=== PATIENT | male | born 1960 | race Caucasian/White ===

== ENCOUNTER 2018-08-01 10:25 | Observation (INO) | payer OTHER ==
--- NOTE | 2018-08-01 11:15 | PDOC ---
Attending Attestation - Resident Resident Name: Darius Oliveira - HPI HPI: The patient is a 58 year old male (current smoker and marijuana user), with a significant PMH of hemolytic anemia, hypertension, kidney stones, and depression , who presents to the emergency department today for irregularly low blood levels. Patient was advised by his PCP to come to the ED for observation of his anemia, and for possible transfusion. Patient has history of hemolytic anemia, but denies any transfusions. He reports associated dizziness, migraines , and bilateral lower extremity leg cramping on exertion. Patient also endorses history of rectal bleeding, but has not had an episode in over a year. The patient denies chest pain, shortness of breath, and orthopnea. Denies lightheadedness, and sensory changes. Denies fever, chills, nausea, vomit, diarrhea and constipation. Denies dysuria, frequency, urgency and hematuria. Allergies: NKA Past surgical history: None reported Social history: Current everyday smoker (20 cigarettes per day) and marijuana user PCP: Dr. Lopez (Not on staff) 08/01/18 13:26 - Physicial Exam PE: GENERAL: Awake, alert, and fully oriented, in no acute distress HEAD: No signs of trauma EYES: PERRLA, EOMI, sclera anicteric, conjunctiva clear ENT: Auricles normal inspection, hearing grossly normal, nares patent, oropharynx clear without exudates. Moist mucosa NECK: Normal ROM, supple, no lymphadenopathy, JVD, or masses LUNGS: Breath sounds equal, clear to auscultation bilaterally. No wheezes, and no crackles HEART: +Mild tachycardia. Regular rate and rhythm, normal S1 and S2, no murmurs , rubs or gallops ABDOMEN: Soft, nontender, normoactive bowel sounds. No guarding, no rebound. No masses EXTREMITIES: Normal range of motion, no edema. No clubbing or cyanosis. No cords, erythema, or tenderness NEUROLOGICAL: Cranial nerves II through XII grossly intact. Normal speech, normal gait SKIN: Warm, Dry, normal turgor, no rashes or lesions noted. 08/01/18 13:27 - Medical Decision Making Documentation prepared by BONY Peña, acting as medical anthropologist for Pilar Desouza MD. 08/01/18 13:27 <Adriane Morgan - Last Filed: 08/01/18 13:37> - Medical Decision Making 08/01/18 18:56 Pt presents to the ED after sent to the ED for severe anemia. Denies complaints except for lightheadness. Labs show severe anemia. Will transfuse 2 units PRBC and admit to medicine. <Pilar Desouza - Last Filed: 08/01/18 18:58>
--- NOTE | 2018-08-01 11:40 | PDOC ---
History of Present Illness - General Chief Complaint: Blood Transfusion Stated Complaint: SENT BY PCP Time Seen by Provider: 08/01/18 11:14 - History of Present Illness Initial Comments: 08/01/18 11:22 58 yo M with h/o HTN, and depression who p/w anemia. Patient advised by PMD to come to ED for low "blood level." Patient was told in past that he had h/o anemia. Denies h/o transfusions. Patient reports 1 year of intermittent rectal spotting with bright red blood per rectum. Does not f/w GI. Denies h/o colonoscopy. Patient denies DIXON, vision change, palpitations, cough, wheezing, orthopena, PND , leg swelling/pain, N/V, F,C, CP, SOB, urinary complaints, hematuria, abdominal pain, diarrhea, constipation, lightheadedness, weakness, sensory changes. PMHx: as noted above ROS: as noted Allergies: NKDA Past History - Past Medical History Allergies/Adverse Reactions: Allergies Allergy/AdvReac Type Severity Reaction Status Date / Time No Known Allergies Allergy Verified 08/01/18 10:29 Home Medications: Ambulatory Orders Amlodipine Besylate 5 mg PO DAILY 03/25/15 Amlodipine Besylate [Norvasc -] 5 mg PO DAILY #7 tablet 03/25/15 Oxycodone HCl/Acetaminophen [Percocet 5/325 -] 1 tab PO Q4H #20 tablet 03/25/15 Tamsulosin HCl [Flomax] 0.4 mg PO DAILY #14 capsule 03/25/15 COPD: No HTN: Yes Kidney Stones: Yes - Surgical History Abdominal Surgery: No Appendectomy: No Cardiac Surgery: No - Immunization History Immunization Up to Date: Yes - Suicide/Smoking/Psychosocial Hx Smoking Status: Yes Smoking History: Current every day smoker Have you smoked in the past 12 months: Yes Number of Cigarettes Smoked Daily: 20 Information on smoking cessation initiated: No 'Breaking Loose' booklet given: 09/13/12 Hx Alcohol Use: No Drug/Substance Use Hx: No Substance Use Type: Marijuana Hx Substance Use Treatment: No Review of Systems - Review of Systems Comments:: 08/01/18 11:49 GENERAL/CONSTITUTIONAL: No fever or chills. No weakness. HEAD, EYES, EARS, NOSE AND THROAT: No change in vision. No ear pain or discharge. No sore throat. CARDIOVASCULAR: No chest pain or shortness of breath RESPIRATORY: No cough, wheezing, or hemoptysis. GASTROINTESTINAL: No nausea, vomiting, diarrhea or constipation. GENITOURINARY: No dysuria, frequency, or change in urination. MUSCULOSKELETAL: No joint or muscle swelling or pain. No neck or back pain. SKIN: No rash NEUROLOGIC: No headache, vertigo, loss of consciousness, or change in strength/ sensation. ENDOCRINE: No increased thirst. No abnormal weight change HEMATOLOGIC/LYMPHATIC: No anemia, easy bleeding, or history of blood clots. ALLERGIC/IMMUNOLOGIC: No hives or skin allergy. *Physical Exam - Vital Signs Last Vital Signs Temp Pulse Resp BP Pulse Ox 99.6 F 109 H 20 141/74 100 08/01/18 10:30 08/01/18 10:30 08/01/18 10:30 08/01/18 10:30 08/01/18 10:30 - Physical Exam Comments: 08/01/18 11:49 GENERAL: Awake, alert, and fully oriented, in no acute distress HEAD: No signs of trauma, normocephalic, atraumatic EYES: PERRLA, EOMI, sclera anicteric, conjunctiva clear ENT: Auricles normal inspection, hearing grossly normal, nares patent, oropharynx clear without exudates. Moist mucosa NECK: Normal ROM, supple, no lymphadenopathy, JVD, or masses LUNGS: No distress, speaks full sentences, clear to auscultation bilaterally HEART: Regular rate and rhythm, normal S1 and S2, no murmurs, rubs or gallops, peripheral pulses normal and equal bilaterally. ABDOMEN: Soft, nontender, normoactive bowel sounds. No guarding, no rebound. No masses EXTREMITIES : Normal inspection, Normal range of motion, no edema. No clubbing or cyanosis. NEUROLOGICAL: Cranial nerves II through XII grossly intact. Normal speech, normal gait, no focal sensorimotor deficits SKIN: Warm, Dry, normal turgor, no rashes or lesions noted Moderate Sedation - Procedure Monitoring Vital Signs: Procedure Monitoring Vital Signs Temperature 99.6 F 08/01/18 10:30 Pulse Rate 109 H 08/01/18 10:30 Respiratory Rate 20 08/01/18 10:30 Blood Pressure 141/74 08/01/18 10:30 O2 Sat by Pulse Oximetry (%) 100 08/01/18 10:30 ED Treatment Course - LABORATORY CBC & Chemistry Diagram: 08/01/18 11:50 08/01/18 11:50 Medical Decision Making - Medical Decision Making 08/01/18 11:46 58 yo M with h/o HTN, chronic anemia ( Hemoglobin ~7-8), and depression who p/w worsening anemia. HR 109, Vitals othewise wnl, AF, A&Ox3. Phyusical exam unremarkable. Will evluate for acute blood loss anemia, and need to resuscitation or transfuse. Patient denies denies DIXON, vision change, palpitations, cough, leg swelling/pain, N/V, F,C, CP, SOB, urinary complaints, hematuria, abdominal pain, diarrhea, constipation, lightheadedness, weakness, sensory changes. Will assess for cardiac dysarrythmias, hypoglycemia, electrolyte abnml, metabolic and toxic derangements, acid-base disturbances, infection. 08/01/18 11:50 ED Course: Patient refuses rectal exam 08/01/18 11:57 H/H: 5.8/21.2 Patient consents to blood transfusions. 2U PRBC 08/01/18 13:45 Admit for transfusion dependent anemia. 08/01/18 14:[address] Dove. Admitted to medicine. *DC/Admit/Observation/Transfer Diagnosis at time of Disposition: Anemia requiring transfusions - Discharge Dispostion Condition at time of disposition: Stable Decision to Admit order: Yes - Referrals Referrals: Thomas Lopez MD [Primary Care Provider] - - Patient Instructions Additional Instructions: Please return to the emergency department with any new or worsening symptoms or concerns. Please follow up with your primary care physician within 72 hours. - Post Discharge Activity
[2018-08-01 12:51] LABS: ALBUMIN 4.4 g/dl (3.4-5.0); ALK PHOS 75 U/L (45-117); ANION GAP 7 MMOL/L (8-16); BILIRUBIN,TOTAL 0.2 mg/dL (0.2-1); BLOOD UREA NITROGEN 13 mg/dL (7-18); CALCIUM 9.7 mg/dL (8.5-10.1); CHLORIDE 103 mmol/L (98-107); CO2 27 mmol/L (21-32); CREATININE 0.9 mg/dL (0.55-1.3); GLUCOSE,RANDOM 84 mg/dL (74-106); SGOT/AST 18 U/L (15-37); SGPT/ALT 23 U/L (13-61); SODIUM 137 mmol/L (136-145); TOT PROT 7.9 g/dl (6.4-8.2)
[2018-08-01 12:56] LABS: INR 1.01 (0.83-1.09); PROTHROMBIN TIME (PATIENT) 11.9 SEC (9.7-13.0)
[2018-08-01 13:13] LABS: HEMATOCRIT 21.2 % (35.4-49); MCHC 27.8 g/dl (32.0-35.9); MEAN CELL VOLUME 58.3 fl (80-96); MEAN PLT VOLUME 9.1 fl (7.5-11.1); PLATELET COUNT 424 K/MM3 (134-434); RBC 3.64 M/mm3 (4.00-5.60); RDW 22.1 % (11.9-15.9); WHITE BLOOD COUNT 8.7 K/mm3 (4.0-10.0)
[2018-08-01 13:36] LABS: MCH 16.2 pg (25.7-33.7)
[2018-08-01 13:38] LABS: HEMOGLOBIN 5.9 GM/dL (11.7-16.9)
[2018-08-01 14:49] LABS: ANISOCYTOSIS 2+; MACROCYTOSIS 0; OVALOCYTE 1+; PLATELET ESTIMATE NORMAL; TEAR DROP CELLS 1+
--- NOTE | 2018-08-01 15:38 | HP ---
CHIEF COMPLAINT: anemia PCP: HISTORY OF PRESENT ILLNESS: 58 y/o male with pmh or htn was sent in by his PCP because of anemia. Pt states that he has noticed a bright red blood per reectum 6 months ago and it happens every 3-4 months, painless bleeding, happens before starting the act of defecation, no pain on defecation, reports constipation for which he has to strain. Also reports feeling of incomplete defecation but no change in caliber of stool, denies leadership intern tinismus. Denies pain in abdomen. Also states that he also lost weight and appetite. Reports after his mom he just lived on coffee for a year. Denies taking NSAID, smokes 10 cig a day, takes exedrine migrain daily. Reports his belly hurts when he is hungry but it gets better after eating. Pt also reports lightheadedness and states its chronic. Denies chest pain, palpitations ER course was notable for: (1)cbc, cmp, (2) (3) Recent Travel: no PAST MEDICAL HISTORY: htn, depression PAST SURGICAL HISTORY: none Social History: Smokin cigs a day Alcohol: no Drugs: no Family History: no h/o cancer. mother from car accident Allergies No Known Allergies Allergy (Verified 08/01/18 10:29) HOME MEDICATIONS: Home Medications Medication Instructions Recorded Amlodipine Besylate 5 mg PO DAILY 03/25/15 Amlodipine Besylate [Norvasc -] 5 mg PO DAILY #7 tablet 03/25/15 Oxycodone HCl/Acetaminophen 1 tab PO Q4H #20 tablet 03/25/15 [Percocet 5/325 -] Tamsulosin HCl [Flomax] 0.4 mg PO DAILY #14 capsule 03/25/15 REVIEW OF SYSTEMS CONSTITUTIONAL: Absent: fever, chills, diaphoresis, generalized weakness, malaise, loss of appetite, weight change HEENT: Absent: rhinorrhea, nasal congestion, throat pain, throat swelling, difficulty swallowing, mouth swelling, ear pain, eye pain, visual changes CARDIOVASCULAR: Absent: chest pain, syncope, palpitations, irregular heart rate, lightheadedness , peripheral edema RESPIRATORY: Absent: cough, shortness of breath, dyspnea with exertion, orthopnea, wheezing, stridor, hemoptysis GASTROINTESTINAL: Absent: abdominal pain, abdominal distension, nausea, vomiting, diarrhea, constipation, GENITOURINARY: Absent: dysuria, frequency, urgency, hesitancy, hematuria, flank pain, genital pain MUSCULOSKELETAL: Absent: myalgia, arthralgia, joint swelling, back pain, neck pain SKIN: Absent: rash, itching, pallor HEMATOLOGIC/IMMUNOLOGIC: Absent: easy bleeding, easy bruising, lymphadenopathy, frequent infections ENDOCRINE: Absent: unexplained weight gain, unexplained weight loss, heat intolerance, cold intolerance NEUROLOGIC: Absent: headache, focal weakness or paresthesias, dizziness, unsteady gait, seizure, mental status changes, bladder or bowel incontinence PSYCHIATRIC: Absent: anxiety, depression, suicidal or homicidal ideation, hallucinations. PHYSICAL EXAMINATION Vital Signs - 24 hr 08/01/18 10:30 Temperature 99.6 F Pulse Rate 109 H Respiratory 20 Rate Blood Pressure 141/74 O2 Sat by Pulse 100 Oximetry (%) GENERAL: Awake, alert, and fully oriented, in no acute distress. HEAD: Normal with no signs of trauma. EYES: Pupils equal, round and reactive to light, extraocular movements intact, sclera anicteric, conjunctiva clear. No lid lag. EARS, NOSE, THROAT: Ears normal, nares patent, oropharynx clear without exudates. Moist mucous membranes. NECK: Normal range of motion, supple without lymphadenopathy, JVD, or masses. LUNGS: Breath sounds equal, clear to auscultation bilaterally. No wheezes, and no crackles. No accessory muscle use. HEART: Regular rate and rhythm, normal S1 and S2 without murmur, rub or gallop. ABDOMEN: Soft, nontender, not distended, normoactive bowel sounds, no guarding, no rebound, no masses. No hepatomegaly or splenomegaly. MUSCULOSKELETAL: Normal range of motion at all joints. No bony deformities or tenderness. No CVA tenderness. UPPER EXTREMITIES: 2+ pulses, warm, well-perfused. No cyanosis. No clubbing. No peripheral edema. LOWER EXTREMITIES: 2+ pulses, warm, well-perfused. No calf tenderness. No peripheral edema. NEUROLOGICAL: Cranial nerves II-XII intact. Normal speech. Normal gait. PSYCHIATRIC: Cooperative. Good eye contact. Appropriate mood and affect. SKIN: Warm, dry, normal turgor, no rashes or lesions noted, normal capillary refill. Laboratory Results - last 24 hr 08/01/18 08/01/18 08/01/18 11:50 11:50 11:50 WBC 8.7 RBC 3.64 L Hgb 5.9 L* Hct 21.2 L D MCV 58.3 L MCH 16.2 L D MCHC 27.8 L RDW 22.1 H Plt Count 424 D MPV 9.1 Neutrophils % No Result Required. Lymphocytes % No Result Required. Neutrophils % (Manual) 84.7 H Band Neutrophils % 0.0 Lymphocytes % (Manual) 10.2 Monocytes % (Manual) 1 L Eosinophils % (Manual) 3.1 Basophils % (Manual) 1.0 Myelocytes % (Man) 0 Promyelocytes % (Man) 0 Nucleated RBC % 0 Blast Cells % (Manual) 0 Metamyelocytes 0 Hypochromia 2+ Platelet Estimate Normal Polychromasia 1+ Poikilocytosis 1+ Anisocytosis 2+ Microcytosis 2+ Macrocytosis 0 Tear Drop Cells 1+ Ovalocytes 1+ Stomatocytes 1+ PT with INR 11.90 INR 1.01 Sodium 137 Potassium 4.0 Chloride 103 Carbon Dioxide 27 Anion Gap 7 L BUN 13 Creatinine 0.9 Creat Clearance w eGFR > 60 Random Glucose 84 Calcium 9.7 Total Bilirubin 0.2 AST 18 ALT 23 Alkaline Phosphatase 75 Total Protein 7.9 Albumin 4.4 Blood Type Antibody Screen Crossmatch 08/01/18 11:50 WBC RBC Hgb Hct MCV MCH MCHC RDW Plt Count MPV Neutrophils % Lymphocytes % Neutrophils % (Manual) Band Neutrophils % Lymphocytes % (Manual) Monocytes % (Manual) Eosinophils % (Manual) Basophils % (Manual) Myelocytes % (Man) Promyelocytes % (Man) Nucleated RBC % Blast Cells % (Manual) Metamyelocytes Hypochromia Platelet Estimate Polychromasia Poikilocytosis Anisocytosis Microcytosis Macrocytosis Tear Drop Cells Ovalocytes Stomatocytes PT with INR INR Sodium Potassium Chloride Carbon Dioxide Anion Gap BUN Creatinine Creat Clearance w eGFR Random Glucose Calcium Total Bilirubin AST ALT Alkaline Phosphatase Total Protein Albumin Blood Type O POSITIVE Antibody Screen Positive Crossmatch See Detail ASSESSMENT/PLAN: microcytic anemai brad from gi bleed: ? gastrc ulcer, duodenal ulcer, diverticulosis, hemorrhoids, polyps, ca IV blood transfusion iron studies prior to transfusion. pt refused stool for occult, Per rectal exam, Gastroentrology evaluation and scanning of abdomen. Risks and benefits explaiined in detail but pt refused it and states i understand it. no active bleed. last bleeding was 6 months ago. monitor vitals repeat hb tomorrow. place in observation vitamin b12 and folic acid can be done outpatient. HTN: hold for now monitor BP depression pt stopped taking meds. adv to follow up with his psychiatrist before stopping it. Fluid : orally allowed electrolytes: repeat in am nutrition: regular diet dvt pro: scd gi pro : protonix 40 daily dispo: obs Visit type - Emergency Visit Emergency Visit: Yes ED Registration Date: 08/01/18 Care time: The patient presented to the Emergency Department on the above date and was hospitalized for further evaluation of their emergent condition. - New Patient This patient is new to me today: Yes Date on this admission: 08/02/18 - Critical Care Critical Care patient: No
[2018-08-01 16:24] VITALS: BMI 20.5
--- NOTE | 2018-08-01 16:42 | PN ---
Teaching Attending Note Name of Resident: Michel Dove ATTENDING PHYSICIAN STATEMENT I saw and evaluated the patient. I reviewed the resident's note and discussed the case with the resident. I agree with the resident's findings and plan as documented. CC: I was told to come in HPI: Mr Child is a very pleasant 58 year old male who says he came in because of his low blood count. He says he is feeling fine and is without complaint, he had blood drawn at his PCP's office and was found to have anemia and was told to present to the ER for a blood transfusion. He says that he had some bright red blood in the past but that has resolved. He says he feels lightheaded on standing but that has been present for months. He denies fevers, chills, dizziness, passing out, chest pain or pressure, shortness of breath, nausea, vomiting, diarrhea, constipation, melena, difficulty or pain on urination, or swelling. He only wants the blood transfusion so he can go home tomorrow. PMHx: HTN, migraine headaches PSHx: none Allergies: none Medications: Home Medications Medication Instructions Recorded Amlodipine Besylate 10 mg PO DAILY 08/01/18 Chlorthalidone 25 mg PO DAILY 08/01/18 also takes at least 4 excedrin/day SHx: 10 cigarettes daily, no alcohol, smokes marijuana daily FHx: does not know, says he grew up alone ROS: full review of systems obtained, as per HPI and otherwise negative OBJECTIVE: Last Vital Signs Temp Pulse Resp BP Pulse Ox 38.0 C H 105 H 16 139/90 99 08/01/18 15:29 08/01/18 15:29 08/01/18 15:29 08/01/18 15:29 08/01/18 15:29 Gen: nad HEENT: perrla, eomi, mmm Pulm: ctab w/o w/r/r CV: rrr w/o m/r/g Abd: +bs, s/nt/nd Ext: no c/c/e CBC, BMP 08/01/18 11:50 08/01/18 11:50 ASSESSMENT AND PLAN: Problem List - Problems (1) Anemia Assessment/Plan: -suspect this is secondary to GIB considering NSAID use -patient declines any GI work up for anemia -states he only wants a transfusion -will transfuse 2 units -made patient aware he needs to stop using NSAIDs -plan for discharge tomorrow after transfusion Code(s): D64.9 - ANEMIA, UNSPECIFIED Qualifiers: Anemia type: iron deficiency Iron deficiency anemia type: chronic blood loss Qualified Code(s): D50.0 - Iron deficiency anemia secondary to blood loss (chronic) (2) Migraine headache Assessment/Plan: -offered neurology consult, patient declined -counselled about proper use of NSAIDs -patient aware Code(s): G43.909 - MIGRAINE, UNSP, NOT INTRACTABLE, WITHOUT STATUS MIGRAINOSUS (3) Tobacco abuse Assessment/Plan: -counselled on cessation -patient states will follow up with PCP Code(s): Z72.0 - TOBACCO USE (4) Marijuana use Assessment/Plan: -patient to follow up with PCP Code(s): F12.90 - CANNABIS USE, UNSPECIFIED, UNCOMPLICATED (5) HTN (hypertension) Assessment/Plan: -will hold antihypertensives since anemic -can restart on discharge Code(s): I10 - ESSENTIAL (PRIMARY) HYPERTENSION
[2018-08-01 20:10] LABS: URINE APPEARANCE SLCLOUDY; URINE BILIRUBIN NEGATIVE (<2.0 mg/dL); URINE COLOR YELLOW; URINE GLUCOSE (UA) NEGATIVE (NEGATIVE); URINE KETONE NEGATIVE (NEGATIVE); URINE LEUK ESTERASE 1+ (NEGATIVE); URINE NITRITE NEGATIVE (NEGATIVE); URINE PROTEIN 1+ (NEGATIVE); URINE UROBILINOGEN NEGATIVE mg/dL (0.2-1.0)
[2018-08-01 20:32] LABS: URINE HYALINE CAST 3 /lpf; URINE MUCUS FEW
[2018-08-01] MEDS: RANITIDINE HCL 150 MG TABLET (FP) PO SCH (21:18)
[2018-08-02 07:13] LABS: HEMOGLOBIN 8.5 GM/dL (11.7-16.9); MCHC 30.5 g/dl (32.0-35.9); MEAN CELL VOLUME 64.7 fl (80-96); MEAN PLT VOLUME 8.6 fl (7.5-11.1); PLATELET COUNT 346 K/MM3 (134-434); RBC 4.32 M/mm3 (4.00-5.60); WHITE BLOOD COUNT 5.6 K/mm3 (4.0-10.0)
[2018-08-02 07:24] LABS: INR 1.05 (0.83-1.09); PROTHROMBIN TIME (PATIENT) 12.4 SEC (9.7-13.0)
[2018-08-02 07:27] LABS: ACTIVATED PTT 30.2 SECONDS (25.2-36.5)
[2018-08-02 07:39] LABS: MCH 19.7 pg (25.7-33.7)
[2018-08-02 08:10] LABS: ANION GAP 8 MMOL/L (8-16); BLOOD UREA NITROGEN 13 mg/dL (7-18); CALCIUM 9.6 mg/dL (8.5-10.1); CHLORIDE 103 mmol/L (98-107); CO2 25 mmol/L (21-32); CREATININE 0.8 mg/dL (0.55-1.3); GLUCOSE,RANDOM 80 mg/dL (74-106); POTASSIUM 4.4 mmol/L (3.5-5.1); SODIUM 136 mmol/L (136-145)
--- NOTE | 2018-08-02 08:55 | DS ---
Physical Exam: SUBJECTIVE: Patient seen and examined OBJECTIVE: Vital Signs Period Temp Pulse Resp BP Sys/Galan Pulse Ox Last 24 Hr 98.2 F-100.4 F 81-109 16-20 102-141/66-90 99-100 PHYSICAL EXAM GENERAL: The patient is awake, alert, and fully oriented, in no acute distress. HEAD: Normal with no signs of trauma. EYES: PERRL, extraocular movements intact, sclera anicteric, conjunctiva clear. ENT: Ears normal, nares patent, oropharynx clear without exudates, moist mucous membranes. NECK: Trachea midline, full range of motion, supple. LUNGS: Breath sounds equal, clear to auscultation bilaterally, no wheezes, no crackles, no accessory muscle use. HEART: Regular rate and rhythm, S1, S2 without murmur, rub or gallop. ABDOMEN: Soft, nontender, nondistended, normoactive bowel sounds, no guarding, no rebound, no hepatosplenomegaly, no masses. EXTREMITIES: 2+ pulses, warm, well-perfused, no edema. NEUROLOGICAL: Cranial nerves II through XII grossly intact. Normal speech, gait not observed. PSYCH: Normal mood, normal affect. SKIN: Warm, dry, normal turgor, no rashes or lesions noted. LABS Laboratory Results - last 24 hr 08/01/18 08/01/18 08/01/18 11:50 11:50 11:50 WBC 8.7 RBC 3.64 L Hgb 5.9 L* Hct 21.2 L D MCV 58.3 L MCH 16.2 L D MCHC 27.8 L RDW 22.1 H Plt Count 424 D MPV 9.1 Neutrophils % No Result Required. Lymphocytes % No Result Required. Neutrophils % (Manual) 84.7 H Band Neutrophils % 0.0 Lymphocytes % (Manual) 10.2 Monocytes % (Manual) 1 L Eosinophils % (Manual) 3.1 Basophils % (Manual) 1.0 Myelocytes % (Man) 0 Promyelocytes % (Man) 0 Nucleated RBC % 0 Blast Cells % (Manual) 0 Metamyelocytes 0 Hypochromia 2+ Platelet Estimate Normal Polychromasia 1+ Poikilocytosis 1+ Anisocytosis 2+ Microcytosis 2+ Macrocytosis 0 Tear Drop Cells 1+ Ovalocytes 1+ Stomatocytes 1+ PT with INR 11.90 INR 1.01 PTT (Actin FS) Sodium 137 Potassium 4.0 Chloride 103 Carbon Dioxide 27 Anion Gap 7 L BUN 13 Creatinine 0.9 Creat Clearance w eGFR > 60 Random Glucose 84 Calcium 9.7 Total Bilirubin 0.2 Ferritin AST 18 ALT 23 Alkaline Phosphatase 75 Total Protein 7.9 Albumin 4.4 Urine Color Urine Appearance Urine pH Ur Specific [place] Urine Protein Urine Glucose (UA) Urine Ketones Urine Blood Urine Nitrite Urine Bilirubin Urine Urobilinogen Ur Leukocyte Esterase Urine WBC (Auto) Urine RBC (Auto) Hyaline Casts Urine Mucus Blood Type Antibody Screen Antibody Identification Antigen Identification Crossmatch 08/01/18 08/01/18 08/01/18 11:50 15:00 17:29 WBC RBC Hgb Hct MCV MCH MCHC RDW Plt Count MPV Neutrophils % Lymphocytes % Neutrophils % (Manual) Band Neutrophils % Lymphocytes % (Manual) Monocytes % (Manual) Eosinophils % (Manual) Basophils % (Manual) Myelocytes % (Man) Promyelocytes % (Man) Nucleated RBC % Blast Cells % (Manual) Metamyelocytes Hypochromia Platelet Estimate Polychromasia Poikilocytosis Anisocytosis Microcytosis Macrocytosis Tear Drop Cells Ovalocytes Stomatocytes PT with INR INR PTT (Actin FS) Sodium Potassium Chloride Carbon Dioxide Anion Gap BUN Creatinine Creat Clearance w eGFR Random Glucose Calcium Total Bilirubin Ferritin 1.4 L AST ALT Alkaline Phosphatase Total Protein Albumin Urine Color Yellow Urine Appearance Slcloudy Urine pH 5.0 Ur Specific [place] 1.024 Urine Protein 1+ H Urine Glucose (UA) Negative Urine Ketones Negative Urine Blood Negative Urine Nitrite Negative Urine Bilirubin Negative Urine Urobilinogen Negative Ur Leukocyte Esterase 1+ H Urine WBC (Auto) 27 Urine RBC (Auto) 1 Hyaline Casts 3 Urine Mucus Few Blood Type O POSITIVE Antibody Screen Positive Antibody Identification Anti-m Antigen Identification K Antigen - NEGATIVE Crossmatch See Detail 08/01/18 08/02/18 08/02/18 19:30 06:30 06:30 WBC 5.6 RBC 4.32 Hgb 8.5 L Hct 28.0 L D MCV 64.7 L D MCH 19.7 L D MCHC 30.5 L RDW 27.0 H Plt Count 346 MPV 8.6 Neutrophils % Lymphocytes % Neutrophils % (Manual) Band Neutrophils % Lymphocytes % (Manual) Monocytes % (Manual) Eosinophils % (Manual) Basophils % (Manual) Myelocytes % (Man) Promyelocytes % (Man) Nucleated RBC % Blast Cells % (Manual) Metamyelocytes Hypochromia Platelet Estimate Polychromasia Poikilocytosis Anisocytosis Microcytosis Macrocytosis Tear Drop Cells Ovalocytes Stomatocytes PT with INR 12.40 INR 1.05 PTT (Actin FS) 30.2 Sodium Potassium Chloride Carbon Dioxide Anion Gap BUN Creatinine Creat Clearance w eGFR Random Glucose Calcium Total Bilirubin Ferritin AST ALT Alkaline Phosphatase Total Protein Albumin Urine Color Urine Appearance Urine pH Ur Specific [place] Urine Protein Urine Glucose (UA) Urine Ketones Urine Blood Urine Nitrite Urine Bilirubin Urine Urobilinogen Ur Leukocyte Esterase Urine WBC (Auto) Urine RBC (Auto) Hyaline Casts Urine Mucus Blood Type O POSITIVE Antibody Screen Antibody Identification Antigen Identification Crossmatch 08/02/18 06:30 WBC RBC Hgb Hct MCV MCH MCHC RDW Plt Count MPV Neutrophils % Lymphocytes % Neutrophils % (Manual) Band Neutrophils % Lymphocytes % (Manual) Monocytes % (Manual) Eosinophils % (Manual) Basophils % (Manual) Myelocytes % (Man) Promyelocytes % (Man) Nucleated RBC % Blast Cells % (Manual) Metamyelocytes Hypochromia Platelet Estimate Polychromasia Poikilocytosis Anisocytosis Microcytosis Macrocytosis Tear Drop Cells Ovalocytes Stomatocytes PT with INR INR PTT (Actin FS) Sodium 136 Potassium 4.4 Chloride 103 Carbon Dioxide 25 Anion Gap 8 BUN 13 Creatinine 0.8 Creat Clearance w eGFR > 60 Random Glucose 80 Calcium 9.6 Total Bilirubin Ferritin AST ALT Alkaline Phosphatase Total Protein Albumin Urine Color Urine Appearance Urine pH Ur Specific [place] Urine Protein Urine Glucose (UA) Urine Ketones Urine Blood Urine Nitrite Urine Bilirubin Urine Urobilinogen Ur Leukocyte Esterase Urine WBC (Auto) Urine RBC (Auto) Hyaline Casts Urine Mucus Blood Type Antibody Screen Antibody Identification Antigen Identification Crossmatch HOSPITAL COURSE: Date of Admission:08/01/18 Date of Discharge: 08/02/18 Discharge Summary Reason For Visit: TRANSFUSION DEPENDENT ANEMIA Current Active Problems Anemia requiring transfusions (Acute) HTN (hypertension) (Acute) Marijuana use (Acute) Migraine headache (Acute) Tobacco abuse (Acute) Condition: Stable - Instructions Diet, Activity, Other Instructions: Follow up with your primary doctor with in one week Advised to follow up with gastroentrologist for colonoscopy Advised to stop taking exedrine migarin as they have aspirin in it and it can cause gi bleed Advised to follow up with neurologist for migrain. Advised to follow up with his psychiatrist before stopping depression pills. Advised that he needs Gastroentrology work. Advised to quit smoking and coffee. advised to take over the counter miralex for constipation Please get your Vitamin b12 and folic acid level check with your primary doctor Please get your cbc ( blood work) repeat with in 7-10 days with your primary doctor. we have started you on iron pills and prescription sent to [facility] Please return to the emergency department with any new or worsening symptoms or concerns. Please follow up with your primary care physician within 72 hours. Referrals: Ham Silva DO [Staff Physician] - Thomas Lopez MD [Primary Care Provider] - 1 Week Disposition: HOME - Home Medications Comprehensive Discharge Medication List: Ambulatory Orders Amlodipine Besylate 10 mg PO DAILY 08/01/18 Chlorthalidone 25 mg PO DAILY 08/01/18 Ferrous Sulfate 325 mg PO DAILY #30 tablet 08/02/18
--- NOTE | 2018-08-02 08:55 | DS ---
Physical Exam: SUBJECTIVE: Patient seen and examined OBJECTIVE: Vital Signs Period Temp Pulse Resp BP Sys/Galan Pulse Ox Last 24 Hr 98.2 F-100.4 F 81-109 16-20 102-141/66-90 99-100 PHYSICAL EXAM GENERAL: Awake, alert, and fully oriented, in no acute distress. HEAD: Normal with no signs of trauma. EYES: Pupils equal, round and reactive to light, extraocular movements intact, sclera anicteric, conjunctiva clear. No lid lag. EARS, NOSE, THROAT: Ears normal, nares patent, oropharynx clear without exudates. Moist mucous membranes. NECK: Normal range of motion, supple without lymphadenopathy, JVD, or masses. LUNGS: Breath sounds equal, clear to auscultation bilaterally. No wheezes, and no crackles. No accessory muscle use. HEART: Regular rate and rhythm, normal S1 and S2 without murmur, rub or gallop. ABDOMEN: Soft, nontender, not distended, normoactive bowel sounds, no guarding, no rebound, no masses. No hepatomegaly or splenomegaly. MUSCULOSKELETAL: Normal range of motion at all joints. No bony deformities or tenderness. No CVA tenderness. UPPER EXTREMITIES: 2+ pulses, warm, well-perfused. No cyanosis. No clubbing. No peripheral edema. LOWER EXTREMITIES: 2+ pulses, warm, well-perfused. No calf tenderness. No peripheral edema. NEUROLOGICAL: Cranial nerves II-XII intact. Normal speech. Normal gait. PSYCHIATRIC: Cooperative. Good eye contact. Appropriate mood and affect. SKIN: Warm, dry, normal turgor, no rashes or lesions noted, normal capillary refill. LABS Laboratory Results - last 24 hr 08/01/18 08/01/18 08/01/18 11:50 11:50 11:50 WBC 8.7 RBC 3.64 L Hgb 5.9 L* Hct 21.2 L D MCV 58.3 L MCH 16.2 L D MCHC 27.8 L RDW 22.1 H Plt Count 424 D MPV 9.1 Neutrophils % No Result Required. Lymphocytes % No Result Required. Neutrophils % (Manual) 84.7 H Band Neutrophils % 0.0 Lymphocytes % (Manual) 10.2 Monocytes % (Manual) 1 L Eosinophils % (Manual) 3.1 Basophils % (Manual) 1.0 Myelocytes % (Man) 0 Promyelocytes % (Man) 0 Nucleated RBC % 0 Blast Cells % (Manual) 0 Metamyelocytes 0 Hypochromia 2+ Platelet Estimate Normal Polychromasia 1+ Poikilocytosis 1+ Anisocytosis 2+ Microcytosis 2+ Macrocytosis 0 Tear Drop Cells 1+ Ovalocytes 1+ Stomatocytes 1+ PT with INR 11.90 INR 1.01 PTT (Actin FS) Sodium 137 Potassium 4.0 Chloride 103 Carbon Dioxide 27 Anion Gap 7 L BUN 13 Creatinine 0.9 Creat Clearance w eGFR > 60 Random Glucose 84 Calcium 9.7 Total Bilirubin 0.2 Ferritin AST 18 ALT 23 Alkaline Phosphatase 75 Total Protein 7.9 Albumin 4.4 Urine Color Urine Appearance Urine pH Ur Specific [place] Urine Protein Urine Glucose (UA) Urine Ketones Urine Blood Urine Nitrite Urine Bilirubin Urine Urobilinogen Ur Leukocyte Esterase Urine WBC (Auto) Urine RBC (Auto) Hyaline Casts Urine Mucus Blood Type Antibody Screen Antibody Identification Antigen Identification Crossmatch 08/01/18 08/01/18 08/01/18 11:50 15:00 17:29 WBC RBC Hgb Hct MCV MCH MCHC RDW Plt Count MPV Neutrophils % Lymphocytes % Neutrophils % (Manual) Band Neutrophils % Lymphocytes % (Manual) Monocytes % (Manual) Eosinophils % (Manual) Basophils % (Manual) Myelocytes % (Man) Promyelocytes % (Man) Nucleated RBC % Blast Cells % (Manual) Metamyelocytes Hypochromia Platelet Estimate Polychromasia Poikilocytosis Anisocytosis Microcytosis Macrocytosis Tear Drop Cells Ovalocytes Stomatocytes PT with INR INR PTT (Actin FS) Sodium Potassium Chloride Carbon Dioxide Anion Gap BUN Creatinine Creat Clearance w eGFR Random Glucose Calcium Total Bilirubin Ferritin 1.4 L AST ALT Alkaline Phosphatase Total Protein Albumin Urine Color Yellow Urine Appearance Slcloudy Urine pH 5.0 Ur Specific [place] 1.024 Urine Protein 1+ H Urine Glucose (UA) Negative Urine Ketones Negative Urine Blood Negative Urine Nitrite Negative Urine Bilirubin Negative Urine Urobilinogen Negative Ur Leukocyte Esterase 1+ H Urine WBC (Auto) 27 Urine RBC (Auto) 1 Hyaline Casts 3 Urine Mucus Few Blood Type O POSITIVE Antibody Screen Positive Antibody Identification Anti-m Antigen Identification K Antigen - NEGATIVE Crossmatch See Detail 08/01/18 08/02/18 08/02/18 19:30 06:30 06:30 WBC 5.6 RBC 4.32 Hgb 8.5 L Hct 28.0 L D MCV 64.7 L D MCH 19.7 L D MCHC 30.5 L RDW 27.0 H Plt Count 346 MPV 8.6 Neutrophils % Lymphocytes % Neutrophils % (Manual) Band Neutrophils % Lymphocytes % (Manual) Monocytes % (Manual) Eosinophils % (Manual) Basophils % (Manual) Myelocytes % (Man) Promyelocytes % (Man) Nucleated RBC % Blast Cells % (Manual) Metamyelocytes Hypochromia Platelet Estimate Polychromasia Poikilocytosis Anisocytosis Microcytosis Macrocytosis Tear Drop Cells Ovalocytes Stomatocytes PT with INR 12.40 INR 1.05 PTT (Actin FS) 30.2 Sodium Potassium Chloride Carbon Dioxide Anion Gap BUN Creatinine Creat Clearance w eGFR Random Glucose Calcium Total Bilirubin Ferritin AST ALT Alkaline Phosphatase Total Protein Albumin Urine Color Urine Appearance Urine pH Ur Specific [place] Urine Protein Urine Glucose (UA) Urine Ketones Urine Blood Urine Nitrite Urine Bilirubin Urine Urobilinogen Ur Leukocyte Esterase Urine WBC (Auto) Urine RBC (Auto) Hyaline Casts Urine Mucus Blood Type O POSITIVE Antibody Screen Antibody Identification Antigen Identification Crossmatch 08/02/18 06:30 WBC RBC Hgb Hct MCV MCH MCHC RDW Plt Count MPV Neutrophils % Lymphocytes % Neutrophils % (Manual) Band Neutrophils % Lymphocytes % (Manual) Monocytes % (Manual) Eosinophils % (Manual) Basophils % (Manual) Myelocytes % (Man) Promyelocytes % (Man) Nucleated RBC % Blast Cells % (Manual) Metamyelocytes Hypochromia Platelet Estimate Polychromasia Poikilocytosis Anisocytosis Microcytosis Macrocytosis Tear Drop Cells Ovalocytes Stomatocytes PT with INR INR PTT (Actin FS) Sodium 136 Potassium 4.4 Chloride 103 Carbon Dioxide 25 Anion Gap 8 BUN 13 Creatinine 0.8 Creat Clearance w eGFR > 60 Random Glucose 80 Calcium 9.6 Total Bilirubin Ferritin AST ALT Alkaline Phosphatase Total Protein Albumin Urine Color Urine Appearance Urine pH Ur Specific [place] Urine Protein Urine Glucose (UA) Urine Ketones Urine Blood Urine Nitrite Urine Bilirubin Urine Urobilinogen Ur Leukocyte Esterase Urine WBC (Auto) Urine RBC (Auto) Hyaline Casts Urine Mucus Blood Type Antibody Screen Antibody Identification Antigen Identification Crossmatch HOSPITAL COURSE: 58 y/o male with pmh or htn was sent in by his PCP because of anemia. Pt states that he has noticed a bright red blood per reectum 6 months ago and it happens every 3-4 months, painless bleeding, happens before starting the act of defecation, no pain on defecation, reports constipation for which he has to strain. 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 Denies pain in abdomen. Also states that he also lost weight and appetite. Reports after his mom he just lived on coffee for a year. Denies taking NSAID, smokes 10 cig a day, takes exedrine migrain daily. Reports his belly hurts when he is hungry but it gets better after eating. Pt also reports lightheadedness and states its chronic. Denies chest pain, palpitations . Hospital course: Pt found to have: microcytic anemia likely from gi bleed: ? gastric ulcer, duodenal ulcer, diverticulosis, hemorrhoids, polyps, ca: Pt got 2 units of blood in hospital and dc home on iron pills. pt refused stool for occult, Per rectal exam, Gastroentrology evaluation and imaging of abdomen. Risks and benefits explained in detail but pt refused it and states i understand it and still don't want to get it done. repeat hemoglobin 8.5. Recommendations Follow up with your primary doctor with in one week Advised to follow up with gastroentrologist for colonoscopy Advised to stop taking exedrine migarin as they have aspirin in it and it can cause gi bleed Advised to follow up with neurologist for migrain. Advised to follow up with his psychiatrist before stopping depression pills. Advised that he needs Gastroentrology work. Advised to quit smoking and coffee. advised to take over the counter miralex for constipation Please get your Vitamin b12 and folic acid level check with your primary doctor Please get your cbc ( blood work) repeat with in 7-10 days with your primary doctor. we have started you on iron pills and prescription sent to [facility] Please return to the emergency department with any new or worsening symptoms or concerns. Please follow up with your primary care physician within 72 hours. Pt dc home in stable condition. Date of Admission:08/01/18 Date of Discharge: 08/02/18 Minutes to complete discharge: 45 Discharge Summary Reason For Visit: TRANSFUSION DEPENDENT ANEMIA Current Active Problems Anemia requiring transfusions (Acute) HTN (hypertension) (Acute) Marijuana use (Acute) Migraine headache (Acute) Tobacco abuse (Acute) Condition: Stable - Instructions Diet, Activity, Other Instructions: Follow up with your primary doctor with in one week Advised to follow up with gastroentrologist for colonoscopy Advised to stop taking exedrine migarin as they have aspirin in it and it can cause gi bleed Advised to follow up with neurologist for migrain. Advised to follow up with his psychiatrist before stopping depression pills. Advised that he needs Gastroentrology work. Advised to quit smoking and coffee. advised to take over the counter miralex for constipation Please get your Vitamin b12 and folic acid level check with your primary doctor Please get your cbc ( blood work) repeat with in 7-10 days with your primary doctor. we have started you on iron pills and prescription sent to [facility] Please return to the emergency department with any new or worsening symptoms or concerns. Please follow up with your primary care physician within 72 hours. Referrals: Ham Silva DO [Staff Physician] - Thomas Lopez MD [Primary Care Provider] - 1 Week Disposition: HOME - Home Medications Comprehensive Discharge Medication List: Ambulatory Orders Amlodipine Besylate 10 mg PO DAILY 08/01/18 Chlorthalidone 25 mg PO DAILY 08/01/18 Ferrous Sulfate 325 mg PO DAILY #30 tablet 08/02/18 This patient is new to me today: No Emergency Visit: Yes ED Registration Date: 08/01/18 Care time: The patient presented to the Emergency Department on the above date and was hospitalized for further evaluation of their emergent condition. Critical Care patient: No - Discharge Referral Referred to [facility] No
[2018-08-02] MEDS: RANITIDINE HCL 150 MG TABLET (FP) PO SCH (09:35)
[2018-08-02 11:27] VITALS: BP 133/86; PULSE 84; TEMP 99
[2018-08-03 08:06] LABS: SERUM IRON SATURATION 3 % (15-55); TOTAL IRON BINDING CAPACITY 478 ug/dL (250-450); UIBC 464 ug/dL (111-343)
== END 2018-08-02 10:04 | disposition home or self-care (01) ==
LOC: SUPCPDRO 10:25 → JER 10:25 → JERBED 13:45 → J7W 15:54
PROVIDERS: ADMIT Internal Medicine; ATTEND Internal Medicine
PROC: 30233N1 Transfusion of Nonautologous Red Blood Cells into Peripheral Vein, Percutaneous Approach (ICD-10-PCS; principal; 2018-08-01)
DX: D50.0 Iron deficiency anemia secondary to blood loss (chronic) (principal); I10 Essential (primary) hypertension; F17.210 Nicotine dependence, cigarettes, uncomplicated; F12.90 Cannabis use, unspecified, uncomplicated; F32.9 Major depressive disorder, single episode, unspecified; Z87.442 Personal history of urinary calculi; G43.909 Migraine, unspecified, not intractable, without status migrainosus
CPT/HCPCS: 36415; 36430; 80048; 80053; 81003; 81015; 82728; 83540; 83550; 84466; 85025; 85027; 85610; 85730; 86850; 86870; 86900; 86901; 86902; 86922; 99285-25; G0378; P9038; P9058

== ENCOUNTER 2019-02-10 10:09 | Observation (INO) | payer OTHER ==
--- NOTE | 2019-02-10 10:59 | PDOC ---
History of Present Illness - General Chief Complaint: Weakness Stated Complaint: WEAKNESS/DIZZINESS Time Seen by Provider: 02/10/19 10:59 - History of Present Illness Initial Comments: 02/10/19 12:48 The patient is a 58 year old male with a history of anemia and HTN who presents for evaluation of generalized weakness. The patient reports a 1 week history of lightheadedness, shortness of breath, and generalized weakness prompting his presentation to the ED for further evaluation. He states that he had similar symptoms in the past and was anemic at the time requiring transfusion. He otherwise denies fevers, chills, chest pain, nausea, vomiting, abdominal pain, dark or tarry stools or changes with urination or bowel movements. Past History - Past Medical History Allergies/Adverse Reactions: Allergies Allergy/AdvReac Type Severity Reaction Status Date / Time No Known Allergies Allergy Verified 08/01/18 10:29 Home Medications: Ambulatory Orders Amlodipine Besylate 10 mg PO DAILY 08/01/18 Ferrous Sulfate 325 mg PO DAILY #30 tablet 08/02/18 Clonidine HCl 0 mg PO DAILY 02/10/19 Anemia: Yes (blood transfusion) COPD: No HTN: Yes Kidney Stones: Yes - Surgical History Abdominal Surgery: No Appendectomy: No Cardiac Surgery: No - Immunization History Immunization Up to Date: Yes - Suicide/Smoking/Psychosocial Hx Smoking Status: Yes Smoking History: Current every day smoker Have you smoked in the past 12 months: Yes Number of Cigarettes Smoked Daily: 12 Cigars Per Day: 0 Information on smoking cessation initiated: No 'Breaking Loose' booklet given: 09/13/12 Hx Alcohol Use: No Drug/Substance Use Hx: Yes Substance Use Type: Marijuana Hx Substance Use Treatment: No Review of Systems - Review of Systems Comments:: 02/10/19 12:56 Constitutional: Fatigue. No fevers, chills, malaise HEENT: No Rhinorrhea, nasal congestion, visual changes Cardiovascular: Lightheadedness. No chest pain, syncope, palpitations, Respiratory: SOB. No Cough, Hemoptysis, Gastrointestinal: No Abdominal pain, Nausea, Vomiting, Constipation, Diarrhea, Melena Genitourinary: No Dysuria, Frequency, Urgency, Hesitancy, Hematuria, Flank pain Musculoskeletal: No Myalgia, arthralgia Skin: No rashes, itching, bruising, pallor Neurologic: No Headache, Dizziness, Numbness, Weakness, or Tingling Psychiatric: No Hallucinations. No SI or HI *Physical Exam - Vital Signs Last Vital Signs Temp Pulse Resp BP Pulse Ox 98.6 F 107 H 16 124/73 100 02/10/19 10:13 02/10/19 10:13 02/10/19 10:13 02/10/19 10:13 02/10/19 10:13 - Physical Exam Comments: 02/10/19 12:57 General Appearance: Nourished. No Apparent Distress HEENT: No Pharyngeal Erythema, Tonsillar Exudate, Tonsillar Erythema Neck: No Cervical Lymphadenopathy Respiratory/Chest: Lungs Clear, Normal Breath Sounds. No Crackles, Rales, Rhonchi, Wheezing Cardiovascular: Regular Rhythm, Regular Rate. No Murmur, Gallops, Rubs Gastrointestinal/Abdominal: Normal Bowel Sounds, Soft. No Guarding, Rebound, Tenderness Musculoskeletal: No CVA Tenderness Extremity: Normal Capillary Refill Integumentary: Normal Color, Dry, Warm Neurologic: Fully Oriented, Alert, Normal Mood/Affect, Normal Response, Heart Score/ECG Review #1 ECG reviewed & interpreted by me at: 13:13 General ECG Interpretation: Sinus Rhythm, Normal Rate, Normal Intervals, No acute ischemic changes ED Treatment Course - LABORATORY CBC & Chemistry Diagram: 02/10/19 11:45 02/10/19 11:45 Medical Decision Making - Medical Decision Making 02/10/19 12:30 The patient is a 58 year old male with a history of anemia and HTN who presents for evaluation of generalized weakness. Given the patient's history and physical exam, we will obtain a cbc, cmp, coags, troponin, ekg, type and screen to evaluate further. We will continue to monitor and reassess while here in the ED. 02/10/19 12:58 CBC demonstrates a HGB of 4.5. CMP is unremarkable. The patient will require admission for further management. We will transfuse with 2 units of PRBC. We discussed the case with the admitting team who accepted the patient for admission. *DC/Admit/Observation/Transfer Diagnosis at time of Disposition: Anemia requiring transfusions - Discharge Dispostion Condition at time of disposition: Stable Decision to Admit order: Yes - Referrals - Patient Instructions - Post Discharge Activity
--- NOTE | 2019-02-10 11:08 | PDOC ---
Attending Attestation - Resident Resident Name: Gene Higgins - HPI HPI: 02/10/19 11:22 Pt presents to the ED complaining of lightheadness and shortness of breath consistent with prior episodes of anemia. patient has been anemic in the past with hgb of 5.9. denies chest pain. Does complain of mild HOLGUIN. Denies bleeding complaints. Was diagnosed with iron deficiency anemia after last episode, but is not taking iron pills because they constipate him. - Physicial Exam PE: 02/10/19 11:31 Agree with resident exam. Patient is alert and in NAD. Heart: regular rate and rhythm, no murmur. lungs cta b/l abdomen: soft, nt, nd - Medical Decision Making 02/10/19 11:32 Pt presents to the ED complaining of HOLGUIN And lightheadness similar to previous episodes of anemia. Denies bleeding complaints. Will check labs and transfuse if necessary. will discharge home if not anemic.
[2019-02-10 12:03] LABS: HEMATOCRIT 16.1 % (35.4-49); MCHC 28.6 g/dl (32.0-35.9); MEAN CELL VOLUME 60.8 fl (80-96); MEAN PLT VOLUME 8.8 fl (7.5-11.1); PLATELET COUNT 341 K/MM3 (134-434); RBC 2.65 M/mm3 (4.00-5.60); RDW 21.5 % (11.9-15.9); WHITE BLOOD COUNT 8.4 K/mm3 (4.0-10.0)
[2019-02-10 12:08] LABS: MCH 17.4 pg (25.7-33.7)
[2019-02-10 12:09] LABS: HEMOGLOBIN 4.6 GM/dL (11.7-16.9)
[2019-02-10 12:22] LABS: INR 1.02 (0.83-1.09)
[2019-02-10 12:25] LABS: ACTIVATED PTT 29.1 SECONDS (25.2-36.5)
[2019-02-10 12:36] LABS: ALBUMIN 3.9 g/dl (3.4-5.0); BILIRUBIN,TOTAL 0.2 mg/dL (0.2-1); BLOOD UREA NITROGEN 21.6 mg/dL (7-18); CALCIUM 9.8 mg/dL (8.5-10.1); CREATININE 1.1 mg/dL (0.55-1.3); POTASSIUM 3.5 mmol/L (3.5-5.1); TOT PROT 6.7 g/dl (6.4-8.2)
[2019-02-10 14:08] LABS: ANISOCYTOSIS 3+; MACROCYTOSIS 0; OVALOCYTE 1+; PLATELET ESTIMATE NORMAL; TEAR DROP CELLS 1+
--- NOTE | 2019-02-10 14:29 | EKG ---
Test Reason : Blood Pressure : / mmHG Vent. Rate : 097 BPM Atrial Rate : 097 BPM P-R Int : 126 ms QRS Dur : 082 ms QT Int : 324 ms P-R-T Axes : 080 083 065 degrees QTc Int : 411 ms NORMAL SINUS RHYTHM NORMAL ECG NO PREVIOUS ECGS AVAILABLE Confirmed by JH WOO MD ([id number]) on 02/10/2019 2:29:05 PM Referred By: Confirmed By:JH WOO MD
[2019-02-10] MEDS ORDERED: PNEUMOC 13-VAL CONJ-DIP CRM/PF 0.5 ML DISP.SYRIN IM ONE (15:24)
[2019-02-10 15:25] VITALS: BMI 18.3
--- NOTE | 2019-02-10 16:28 | HP ---
Admitting History and Physical - Primary Care Physician PCP: Julio Loo - Admission History of Present Illness: 58 year old male with a history of anemia and HTN who presents for evaluation of generalized weakness. The patient reports a 1 week history of lightheadedness, shortness of breath, and generalized weakness prompting his presentation to the ED for further evaluation. He states that he had similar symptoms in the past and was anemic at the time requiring transfusion. He otherwise denies fevers, chills, chest pain, nausea, vomiting, abdominal pain, dark or tarry stools or changes with urination or bowel movements. - Past Medical History Cardiovascular: Yes: HTN Heme/Onc: Yes: Anemia - Smoking History Smoking history: Current every day smoker Have you smoked in the past 12 months: Yes Aproximately how many cigarettes per day: 12 - Alcohol/Substance Use Hx Alcohol Use: No Home Medications - Allergies Allergies/Adverse Reactions: Allergies Allergy/AdvReac Type Severity Reaction Status Date / Time No Known Allergies Allergy Verified 08/01/18 10:29 - Home Medications Home Medications: Ambulatory Orders Amlodipine Besylate 10 mg PO DAILY 08/01/18 Ferrous Sulfate 325 mg PO DAILY #30 tablet 08/02/18 Clonidine HCl 0 mg PO DAILY 02/10/19 Physical Examination Vital Signs: Vital Signs Temperature 98.4 F 02/10/19 12:59 Pulse Rate 96 H 02/10/19 12:59 Respiratory Rate 20 02/10/19 12:59 Blood Pressure 133/79 02/10/19 12:59 O2 Sat by Pulse Oximetry (%) 100 02/10/19 12:59 Constitutional: Yes: No Distress HENT: Yes: Atraumatic Neck: Yes: Supple Cardiovascular: Yes: Regular Rate and Rhythm Respiratory: Yes: CTA Bilaterally Gastrointestinal: Yes: Normal Bowel Sounds Extremities: Yes: WNL Neurological: Yes: Alert, Oriented Labs: CBC, BMP 02/10/19 11:45 02/10/19 11:45 Problem List - Problems (1) Anemia requiring transfusions Assessment/Plan: transfuse 2 u prbc gi/heme consult d/w patient care plan Code(s): D64.9 - ANEMIA, UNSPECIFIED (2) HTN (hypertension) Assessment/Plan: on med monitor Code(s): I10 - ESSENTIAL (PRIMARY) HYPERTENSION Assessment/Plan Laboratory Tests 02/10/19 02/10/1919 11:45 11:45 11:45 WBC 8.4 RBC 2.65 L Hgb 4.6 L* Hct 16.1 L D MCV 60.8 L MCH 17.4 L D MCHC 28.6 L RDW 21.5 H Plt Count 341 MPV 8.8 Absolute Neuts (auto) 6.8 Neutrophils % No Result Required. Neutrophils % (Manual) 88.7 H Band Neutrophils % 0.0 Lymphocytes % No Result Required. Lymphocytes % (Manual) 10.3 Monocytes % (Manual) 1 L Eosinophils % (Manual) 0.0 D Basophils % (Manual) 0.0 Myelocytes % (Man) 0 Promyelocytes % (Man) 0 Blast Cells % (Manual) 0 Nucleated RBC % 0 Metamyelocytes 0 Hypochromia 2+ Platelet Estimate Normal Platelet Comment Present Polychromasia 1+ Poikilocytosis 1+ Anisocytosis 3+ Microcytosis 2+ Macrocytosis 0 Tear Drop Cells 1+ Ovalocytes 1+ PT with INR 12.00 INR 1.02 PTT (Actin FS) 29.1 Sodium 137 Potassium 3.5 Chloride 101 Carbon Dioxide 27 Anion Gap 10 BUN 21.6 H Creatinine 1.1 Est GFR (CKD-EPI)AfAm 85.31 Est GFR (CKD-EPI)NonAf 73.61 Random Glucose 99 Calcium 9.8 Total Bilirubin 0.2 AST 16 ALT 15 Alkaline Phosphatase 67 Total Protein 6.7 Albumin 3.9 Blood Type Antibody Screen Crossmatch 02/10/19 02/10/19 11:45 11:45 WBC RBC Hgb Hct MCV MCH MCHC RDW Plt Count MPV Absolute Neuts (auto) Neutrophils % Neutrophils % (Manual) Band Neutrophils % Lymphocytes % Lymphocytes % (Manual) Monocytes % (Manual) Eosinophils % (Manual) Basophils % (Manual) Myelocytes % (Man) Promyelocytes % (Man) Blast Cells % (Manual) Nucleated RBC % Metamyelocytes Hypochromia Platelet Estimate Platelet Comment Polychromasia Poikilocytosis Anisocytosis Microcytosis Macrocytosis Tear Drop Cells Ovalocytes PT with INR Cancelled INR Cancelled PTT (Actin FS) Sodium Potassium Chloride Carbon Dioxide Anion Gap BUN Creatinine Est GFR (CKD-EPI)AfAm Est GFR (CKD-EPI)NonAf Random Glucose Calcium Total Bilirubin AST ALT Alkaline Phosphatase Total Protein Albumin Blood Type O POSITIVE Antibody Screen Positive H Crossmatch See Detail Active Medications Generic Name Dose Route Start Last Admin Trade Name Freq PRN Reason Stop Dose Admin Pneumococcal Polyvalent Vaccine 0.5 ml 02/10/19 16:30 Pneumovax - IM 02/10/19 16:31 .ONCE ONE
[2019-02-10] MEDS: PNEUMOCOCCAL 23 VACCINE 0.5 ML VIAL IM ONE ×2 (18:27→18:30)
--- NOTE | 2019-02-10 21:51 | CONSULT ---
Consult - text type - Consultation Consultation Note: 58 year old male with a history of anemia and HTN who presents for evaluation of generalized weakness. The patient reports a 1 week history of lightheadedness, shortness of breath, and generalized weakness prompting his presentation to the ED for further evaluation. He states that he had similar symptoms in the past and was anemic at the time requiring transfusion. He reports bleding per rectum intermittently over several months but is very reluctant to get GI w//u. Understands that we may be missing the opportunity to cure a potentially serious proble like cancer but is very reluctant to get it. Also reports wt. loss over the past year --20pounds Allergies/Adverse Reactions: Allergies Allergy/AdvReac Type Severity Reaction Status Date / Time No Known Allergies Allergy Verified 08/01/18 10:29 Home Medications: Ambulatory Orders Amlodipine Besylate 10 mg PO DAILY 08/01/18 Ferrous Sulfate 325 mg PO DAILY #30 tablet 08/02/18 Clonidine HCl 0 mg PO DAILY 02/10/19 PMH anemia: Yes (blood transfusion) COPD: No HTN: Yes Kidney Stones: Yes - Suicide/Smoking/Psychosocial Hx Smoking Status: Yes Smoking History: Current every day smoker - Vital Signs Last Vital Signs Temp Pulse Resp BP Pulse Ox 98.4 F 71 18 107/70 100 02/11/19 04:50 02/11/19 04:50 02/11/19 04:50 02/11/19 04:50 02/11/19 00:28 Cor: RSR, No murmurs, No gallops Lungs: Clear to P&A Abd: Soft, Normal bowel sounds, No organomegaly Ext:No significant edema Labs/Meds reviewed A/P 58 year old male with a history of anemia and HTN who presents for evaluation of generalized weakness. The patient reports a 1 week history of lightheadedness, shortness of breath, and generalized weakness prompting his presentation to the ED for further evaluation. He states that he had similar symptoms in the past and was anemic at the time requiring transfusion. He reports bleding per rectum intermittently over several months but is very reluctant to get GI w//u. Understands that we may be missing the opportunity to cure a potentially serious proble like cancer but is very reluctant to get it. Also reports wt. loss over the past year --20pounds Severe microcytic anemia--suspect chronic gi losses recommended gi w/u patient very concerned and reluctant check iron studies/ferritin/B12/folate/TSH
[2019-02-11 07:43] LABS: BASO % 0.9 % (0-2.0); EOS % 1.1 % (0-4.5); HEMATOCRIT 24.4 % (35.4-49); HEMOGLOBIN 7.5 GM/dL (11.7-16.9); LYMPH % 21.6 % (8-40); MCH 21.1 pg (25.7-33.7); MCHC 30.6 g/dl (32.0-35.9); MEAN PLT VOLUME 8.5 fl (7.5-11.1); MONO % 6.9 % (3.8-10.2); NEUT % 69.5 % (42.8-82.8); PLATELET COUNT 322 K/MM3 (134-434); RBC 3.54 M/mm3 (4.00-5.60); RDW 27.3 % (11.9-15.9); WHITE BLOOD COUNT 5.7 K/mm3 (4.0-10.0)
[2019-02-11 10:13] LABS: IRON SERUM 21 ug/dL (50-175); TOTAL IRON BINDING CAPACITY 473 ug/dL (250-450)
[2019-02-11 14:49] VITALS: BP 120/81; PULSE 84; TEMP 98.6
--- NOTE | 2019-02-11 20:49 | CONS ---
GASTROINTESTINAL CONSULTATION DATE OF CONSULTATION: DATE OF DICTATION: 02/11/2019 HISTORY: Patient is a 58-year-old man with past medical history significant for anemia. He has never had a full evaluation for his anemia. He states that he has been having some shortness of breath and weakness over the past week and occasionally has noticed red blood in the stool. This has been an ongoing issue for him; however, although he was advised to have an EGD and colonoscopy, he has never had one in the past and is currently refusing endoscopic evaluation. He denies any abdominal pain, nausea, vomiting, hematemesis, melena, or weight loss. PAST MEDICAL HISTORY: As listed in the HPI. PAST SURGICAL HISTORY: As listed in the HPI. ALLERGIES: No known drug allergies. SOCIAL HISTORY: He smokes cigarettes and does not drink alcohol. Occasionally uses marijuana. FAMILY HISTORY: No history of GI or gynecological malignancy, although he states that he does not keep in touch with his family. HOME MEDICATIONS: Denies. REVIEW OF SYSTEMS: As per the HPI. PHYSICAL EXAMINATION: Vital Signs: Temperature 98, pulse 84, respiratory rate 18, pulse oximetry 98% on room air, blood pressure 120/81. General: In no acute distress. HEENT: Anicteric sclerae. Cardiovascular: S1, S2. Regular rate and rhythm. Lungs: Bilaterally clear to auscultation. Abdomen: Soft and nontender. Extremities: No edema. LABORATORIES: White blood cell count 5.7, on admission 4.6, currently 7.5 after transfusion, MCV 69, platelet count 322, INR 1. Sodium 137, potassium 3.5, BUN 21, creatinine 1, iron 21, saturation 473, ferratin 452, total bilirubin 1.8 total bilirubin 0.2, AST 16, ALT 15, alkaline phosphatase 67. He had a chest x-ray, which revealed clear lungs and normal mediastinum. There is plaque at the knob. IMPRESSION: Microcytic anemia. Gastrointestinal blood loss cannot be excluded at this time particularly since he has been having episodes of hematochezia and rectal bleeding. PLAN: The risks and benefits of endoscopic examination was explained in detail including the risk of not having the procedure and having an undiagnosed colorectal malignancy or other gastrointestinal malignancy. He states he would prefer to follow up as an outpatient and would prefer to leave the hospital despite my counseling. If he chooses to remain, we will schedule an endoscopy and colonoscopy in the evaluation of his anemia. We will follow. DO CYNTHIA TORREZ/[id number]
== END 2019-02-11 12:12 | disposition left against medical advice (07) ==
LOC: JER 10:09 → JERBED 12:59 → INTOOBSV 12:59 → UNDOADMOB 12:59 → J5S 15:47 → JERBED 15:47 → J5S 16:28 → JERBED 16:28
PROVIDERS: ADMIT Internal Medicine; ATTEND Internal Medicine
PROC: 30233N1 Transfusion of Nonautologous Red Blood Cells into Peripheral Vein, Percutaneous Approach (ICD-10-PCS; principal; 2019-02-10)
DX: D50.9 Iron deficiency anemia, unspecified (principal); I10 Essential (primary) hypertension; F17.210 Nicotine dependence, cigarettes, uncomplicated
CPT/HCPCS: 36415; 36430; 36511; 71045-TC-FY; 80053; 82550; 82607; 82728; 82747; 83540; 83550; 84484; 85014; 85025; 85610; 85651; 85730; 86140; 86850; 86870; 86900; 86901; 86902; 86922; 90732; 93005; 93010; 99284-25; G0009; G0378; P9038; P9058

== ENCOUNTER 2019-05-02 10:18 | Inpatient (IN) | payer OTHER ==
--- NOTE | 2019-05-02 11:13 | PDOC ---
History of Present Illness - General Chief Complaint: Weakness Stated Complaint: WEAKNESS/DIZZYNESS Time Seen by Provider: 05/02/19 10:56 - History of Present Illness Initial Comments: 05/02/19 11:08 58 M with h/o anemia requiring transfusion, GI bleed of unclear etiology, presenting to ED with 4 days of BRBPR and weakness. Pt states that he has had intermittent GI bleeds for several years, often resulting in anemia requiring transfusion. Pt states that this episode of bleeding has lasted 4 days. Denies any dark tarry stools, denies vomiting. Denies abdominal pain. Pt has refused to f/u with GI and refused colonoscopy in the past. When asked about it today, he states he is ready to see a GI doctor but does not want the colonoscopy yet. Pt also complains of generalized weakness and fatigue. Denies CP/SOB/ palpitations/lightheadedness. States that he feels like he usually does when he needs a blood transfusion. Past History - Past Medical History Allergies/Adverse Reactions: Allergies Allergy/AdvReac Type Severity Reaction Status Date / Time No Known Allergies Allergy Verified 05/02/19 11:14 Home Medications: Ambulatory Orders Amlodipine Besylate 10 mg PO DAILY 08/01/18 Ferrous Sulfate 325 mg PO DAILY #30 tablet 08/02/18 Clonidine HCl 0 mg PO DAILY 02/10/19 Anemia: Yes (blood transfusion) COPD: No HTN: Yes Kidney Stones: Yes Psychiatric Problems: Yes (depression) - Surgical History Abdominal Surgery: No Appendectomy: No Cardiac Surgery: No - Immunization History Immunization Up to Date: Yes - Psycho Social/Smoking Cessation Hx Smoking Status: Yes Smoking History: Current every day smoker Have you smoked in the past 12 months: Yes Number of Cigarettes Smoked Daily: 12 Cigars Per Day: 0 Information on smoking cessation initiated: Yes 'Breaking Loose' booklet given: 09/13/12 Hx Alcohol Use: No Drug/Substance Use Hx: Yes Substance Use Type: Marijuana Hx Substance Use Treatment: No Review of Systems - Review of Systems Comments:: 05/02/19 11:11 GENERAL/CONSTITUTIONAL: No fever or chills. No weakness. HEAD, EYES, EARS, NOSE AND THROAT: No change in vision. No ear pain or discharge. No sore throat. CARDIOVASCULAR: No chest pain, no shortness of breath, no loss of consciousness RESPIRATORY: No cough, wheezing, or hemoptysis. GASTROINTESTINAL: + BRBPR, No nausea, vomiting, diarrhea or constipation. GENITOURINARY: No dysuria, frequency, or change in urination. MUSCULOSKELETAL: No joint or muscle swelling or pain. No neck or back pain. SKIN: No rash NEUROLOGIC: No vertigo, no change in strength/sensation. ENDOCRINE: No increased thirst. No abnormal weight change. HEMATOLOGIC/LYMPHATIC: No anemia, easy bleeding, or history of blood clots. ALLERGIC/IMMUNOLOGIC: No hives or skin allergy. *Physical Exam - Vital Signs Last Vital Signs Temp Pulse Resp BP Pulse Ox 98.2 F 109 H 16 133/69 100 05/02/19 10:30 05/02/19 10:30 05/02/19 10:30 05/02/19 10:30 05/02/19 10:30 - Physical Exam 05/02/19 11:12 "GENERAL: Awake, alert, and fully oriented, in no acute distress. HEAD: No signs of trauma EYES: PERRLA, EOMI, sclera anicteric, conjunctiva clear ENT: Auricles normal inspection, hearing grossly normal, nares patent, oropharynx clear without exudates. Moist mucosa NECK: Nontender, no stepoffs, Normal ROM, supple, no lymphadenopathy, JVD, or masses LUNGS: Breath sounds equal, clear to auscultation bilaterally. No wheezes, and no crackles HEART: Regular rate and rhythm, normal S1 and S2, no murmurs, rubs or gallops ABDOMEN: Soft, nontender, normoactive bowel sounds. No guarding, no rebound. No masses EXTREMITIES: Normal range of motion, no edema. No clubbing or cyanosis. No cords, erythema, or tenderness NEUROLOGICAL: Cranial nerves II through XII intact. 5/5 strength and sensation in all extremities, Normal speech, normal gait, normal cerebellar function SKIN: Warm, Dry, normal turgor, no rashes or lesions noted. ED Treatment Course - LABORATORY CBC & Chemistry Diagram: 05/02/19 11:25 05/02/19 11:25 Medical Decision Making - Medical Decision Making 05/02/19 11:12 58 M with GI bleed. Unclear source, but given pt's weight loss and cachectic appearance, malignancy is likely. - Labs, T&S - Transfuse if needed - admit 05/02/19 12:38 Hb 5.6 2u PRBC ordered Pt consented 05/02/19 13:21 Pt admitted to hospitalist 05/02/19 15:07 Case discussed with ICU resident Randall Daugherty, who will evaluate pt Discharge - Discharge Information Problems reviewed: Yes Clinical Impression/Diagnosis: Anemia, GI bleed - Admission Yes - Follow up/Referral - Patient Discharge Instructions - Post Discharge Activity
[2019-05-02 11:42] LABS: BASO % 1.4 % (0-2.0); EOS % 0.1 % (0-4.5); HEMATOCRIT 19.6 % (35.4-49); LYMPH % 11.1 % (8-40); MCHC 28.3 g/dl (32.0-35.9); MEAN CELL VOLUME 61.3 fl (80-96); MEAN PLT VOLUME 8.7 fl (7.5-11.1); MONO % 3.7 % (3.8-10.2); NEUT % 83.7 % (42.8-82.8); PLATELET COUNT 416 K/MM3 (134-434); RDW 21.7 % (11.9-15.9); WHITE BLOOD COUNT 8.4 K/mm3 (4.0-10.0)
--- NOTE | 2019-05-02 11:42 | EKG ---
Test Reason : Blood Pressure : / mmHG Vent. Rate : 092 BPM Atrial Rate : 092 BPM P-R Int : 134 ms QRS Dur : 082 ms QT Int : 332 ms P-R-T Axes : 069 075 062 degrees QTc Int : 410 ms NORMAL SINUS RHYTHM NORMAL ECG WHEN COMPARED WITH ECG OF 10-FEB-2019 10:26, NO SIGNIFICANT CHANGE WAS FOUND Confirmed by GOSIA QUIROGA MD ([id number]) on 05/02/2019 11:42:37 AM Referred By: Confirmed By:GOSIA QUIROGA MD
[2019-05-02 12:02] LABS: MCH 17.4 pg (25.7-33.7)
[2019-05-02 12:03] LABS: HEMOGLOBIN 5.6 GM/dL (11.7-16.9)
[2019-05-02 12:09] LABS: ALBUMIN 4.1 g/dl (3.4-5.0); BILIRUBIN,TOTAL 0.4 mg/dL (0.2-1); BLOOD UREA NITROGEN 21.1 mg/dL (7-18); CALCIUM 9.8 mg/dL (8.5-10.1); POTASSIUM 3.2 mmol/L (3.5-5.1); TOT PROT 7.1 g/dl (6.4-8.2)
[2019-05-02 12:22] LABS: INR 1.01 (0.83-1.09); PROTHROMBIN TIME (PATIENT) 11.9 SEC (9.7-13.0)
--- NOTE | 2019-05-02 13:50 | HP ---
CHIEF COMPLAINT: BRBP x 1 week PCP: Denies HISTORY OF PRESENT ILLNESS: Pt is a 58 y/o M with a significant past medical history of HTN and migraines who presents to [facility] due to BRBPR x 1 week. Pt states he has been experiencing 1 bloody bowel movement each day for the past week. States he has experienced BRBP approximately 6 months ago; he presented to our hospital then but refused colonoscopy or further work up; that episode also lasted ~ 1 week and he mercado snot experienced any rectal bleeding since that time. Endorses lightheadedness and palpitations upon standing. Denies chest pain, shortness of breath, nausea/vomiting, fever, or chills. Has never had a colonoscopy in the past. Denies a family history of colon malignancy. Denies unintentional weight loss. Of note, pt was at our hospital in January of this year where he was worked up for iron deficiency anemia. Hemoglobin at that time was 4.6. ER course was notable for: (1) hemoglobin 5.6 (2) (3) PAST MEDICAL HISTORY: HTN and Migraines PAST SURGICAL HISTORY: Denies Social History: Smoking: smokes 10 cigarettes per day since adolescence Alcohol: Denies Drugs: Denies Allergies No Known Allergies Allergy (Verified 05/02/19 11:14) HOME MEDICATIONS: Home Medications Medication Instructions Recorded Amlodipine Besylate 10 mg PO DAILY 08/01/18 Ferrous Sulfate 325 mg PO DAILY #30 tablet 08/02/18 Clonidine HCl 0 mg PO DAILY 02/10/19 REVIEW OF SYSTEMS CONSTITUTIONAL: Absent: fever, chills, diaphoresis, generalized weakness, malaise, loss of appetite, weight change HEENT: Absent: rhinorrhea, nasal congestion, throat pain, throat swelling, difficulty swallowing, mouth swelling, ear pain, eye pain, visual changes CARDIOVASCULAR: Absent: chest pain, syncope, palpitations, irregular heart rate, lightheadedness , peripheral edema RESPIRATORY: Absent: cough, shortness of breath, dyspnea with exertion, orthopnea, wheezing, stridor, hemoptysis GASTROINTESTINAL: Absent: abdominal pain, abdominal distension, nausea, vomiting, diarrhea, constipation, melena, hematochezia GENITOURINARY: Absent: dysuria, frequency, urgency, hesitancy, hematuria, flank pain, genital pain MUSCULOSKELETAL: Absent: myalgia, arthralgia, joint swelling, back pain, neck pain SKIN: Absent: rash, itching, pallor HEMATOLOGIC/IMMUNOLOGIC: PRESENT: bleeding ENDOCRINE: Absent: unexplained weight gain, unexplained weight loss, heat intolerance, cold intolerance NEUROLOGIC: Absent: headache, focal weakness or paresthesias, dizziness, unsteady gait, seizure, mental status changes, bladder or bowel incontinence PSYCHIATRIC: Absent: anxiety, depression, suicidal or homicidal ideation, hallucinations. PHYSICAL EXAMINATION Vital Signs - 24 hr 05/02/19 05/02/19 10:30 11:46 Temperature 98.2 F Pulse Rate 109 H Respiratory 16 Rate Blood Pressure 133/69 O2 Sat by Pulse 100 99 Oximetry (%) GENERAL: NAD HEAD: AT/NC EYES: No conjunctival pallor appreciated EARS, NOSE, THROAT: No sublingual pallor NECK: Supple LUNGS: CTAB HEART: RRR S1S2 ABDOMEN: Soft and nondistended RECTAL: Pt refused rectal exam MUSCULOSKELETAL: FROM throughout UPPER EXTREMITIES: 2+ pulses, warm, well-perfused. No cyanosis. No clubbing. No peripheral edema. LOWER EXTREMITIES: no CCE NEUROLOGICAL: Cranial nerves II-XII intact. Normal speech PSYCHIATRIC: Cooperative. Good eye contact. Appropriate mood and affect. SKIN: Warm, dry, normal turgor, no rashes or lesions noted, normal capillary refill. Laboratory Results - last 24 hr 05/02/19 05/02/19 05/02/19 11:25 11:25 11:25 WBC 8.4 RBC 3.20 L Hgb 5.6 L* Hct 19.6 L D MCV 61.3 L MCH 17.4 L D MCHC 28.3 L RDW 21.7 H Plt Count 416 D MPV 8.7 Absolute Neuts (auto) 7.0 Neutrophils % 83.7 H D Lymphocytes % 11.1 D Monocytes % 3.7 L Eosinophils % 0.1 D Basophils % 1.4 Nucleated RBC % 0 PT with INR INR PTT (Actin FS) 28.9 Sodium Cancelled Potassium Cancelled Chloride Cancelled Carbon Dioxide Cancelled Anion Gap Cancelled BUN Cancelled Creatinine Cancelled Est GFR (CKD-EPI)AfAm Cancelled Est GFR (CKD-EPI)NonAf Cancelled Random Glucose Cancelled Calcium Cancelled Total Bilirubin Cancelled AST Cancelled ALT Cancelled Alkaline Phosphatase Cancelled Creatine Kinase 44 Troponin I < 0.02 Total Protein Cancelled Albumin Cancelled Blood Type Antibody Screen Crossmatch 05/02/19 05/02/1919 11:25 11:25 11:25 WBC RBC Hgb Hct MCV MCH MCHC RDW Plt Count MPV Absolute Neuts (auto) Neutrophils % Lymphocytes % Monocytes % Eosinophils % Basophils % Nucleated RBC % PT with INR 11.90 INR 1.01 PTT (Actin FS) Sodium 137 Potassium 3.2 L Chloride 102 Carbon Dioxide 27 Anion Gap 9 BUN 21.1 H Creatinine 1.0 Est GFR (CKD-EPI)AfAm 95.73 Est GFR (CKD-EPI)NonAf 82.60 Random Glucose 104 Calcium 9.8 Total Bilirubin 0.4 AST 11 L ALT 15 Alkaline Phosphatase 65 Creatine Kinase Troponin I Total Protein 7.1 Albumin 4.1 Blood Type O POSITIVE Antibody Screen Positive Crossmatch See Detail ASSESSMENT/PLAN: Pt is a 58 y/o M with a significant past medical history of HTN and migraines who presents to [facility] due to BRBPR x 1 week. #GI Bleed likely upper GI Bleed - H/H 5.6/19.6 - BUN 21.1, making an upper GI bleed more likely though not that significantly elevated -Protonix Drip -FOBT. Pt refused rectal exam in ED -Trend CBC -D5 1/2 nS w/ 10mEQ KCL as pt NPO -Gastroenterology consult. recs appreciated. -To receive 2 U PRBCs in ED #HTN -will hold off on resuming Amlodipine and Chlorthaladone as pt normotensive and actively bleeding #FEN D5 1/2NS w/ 10mEQ KCL Monitor Electrolytes NPO #DVT ppx -No AC Visit type - Emergency Visit Emergency Visit: Yes ED Registration Date: 05/02/19 Care time: The patient presented to the Emergency Department on the above date and was hospitalized for further evaluation of their emergent condition. - New Patient This patient is new to me today: Yes Date on this admission: 05/02/19 - Critical Care Critical Care patient: No ATTENDING PHYSICIAN STATEMENT I saw and evaluated the patient. I reviewed the resident's note and discussed the case with the resident. I agree with the resident's findings and plan as documented. SUBJECTIVE: OBJECTIVE: ASSESSMENT AND PLAN:
[2019-05-02] MEDS ORDERED: D5-1/2NS+10 MEQ KCL - 10 MEQ/1,000 ML INFUS.BAG IV SCH ×2 (14:00→19:35)
[2019-05-02] MEDS ORDERED: PANTOPRAZOLE SODIUM 40 MG/100 ML BAG IVPB ONE ×2 (14:26→14:28)
[2019-05-02] MEDS ORDERED: PANTOPRAZOLE SODIUM 40 MG VIAL ONE ×2 (14:26→14:28)
[2019-05-02 14:29] LABS: ANISOCYTOSIS 2+; PLATELET ESTIMATE NORMAL
[2019-05-02] MEDS ORDERED: PANTOPRAZOLE SODIUM 80 MG in SODIUM CHLORIDE 100 ML IVPB SCH (15:00)
[2019-05-02 15:27] LABS: HEMATOCRIT 18.8 % (35.4-49); MCHC 28.1 g/dl (32.0-35.9); MEAN CELL VOLUME 61.1 fl (80-96); MEAN PLT VOLUME 8.3 fl (7.5-11.1); PLATELET COUNT 448 K/MM3 (134-434); RBC 3.08 M/mm3 (4.00-5.60); RDW 22.2 % (11.9-15.9); WHITE BLOOD COUNT 8.5 K/mm3 (4.0-10.0)
[2019-05-02 15:36] LABS: MCH 17.1 pg (25.7-33.7)
[2019-05-02 15:38] LABS: HEMOGLOBIN 5.3 GM/dL (11.7-16.9)
[2019-05-02 15:47] LABS: IRON SERUM 14 ug/dL (50-175); TOTAL IRON BINDING CAPACITY 528 ug/dL (250-450)
[2019-05-02] MEDS ORDERED: FLU VACCINE QUAD 60 MCG/0.5 ML (MDV 19-20) IM ONE (15:55)
--- NOTE | 2019-05-02 16:31 | CONSULT ---
Consultation: REQUESTING PROVIDER: CONSULT REQUEST: We have been asked to medically evaluate this patient for GIB. HISTORY OF PRESENT ILLNESS: 58 M with h/o anemia requiring transfusion, GI bleed of unclear etiology, presenting to ED with 4 days of BRBPR (ending 2 days ago) and weakness. Pt states that he has had intermittent GI bleeds since May, most recently 5 months ago, resulting in anemia requiring transfusion. Pt states that this episode of bleeding has lasted 4 days and ended two days ago. Blood on tissue and in toilet bowel, not mixed with stool, bright red, no diarrhea. Reports a normal, non-bloody BM this morning. Also endorses Hx of straining during BMs, patient has never allowed a rectal exam or visual inspection. Denies any dark tarry stools, denies vomiting. Denies abdominal pain. Pt has refused to f/u with GI and refused colonoscopy in the past. When asked about it today, he states he is ready to see a GI doctor but does not want the colonoscopy yet - specifies that he wants a one-on-one GI discussion and to defer any intervention or exam until May. Adamantly denies weight loss, night sweats, FHx of cancer. Pt also complains of recent generalized weakness and fatigue - denies at the current time. Denies CP/SOB/palpitations/lightheadedness. States that he feels like he usually does when he needs a blood transfusion. In the ED hgb found to be 5.6, T&S done, ordered for [address] ordered. Patient initially send to Med/Surg floor. PCP: Patient states that he does not have a PCP REVIEW OF SYSTEMS: As above PHYSICAL EXAMINATION Vital Signs - 24 hr 05/02/19 05/02/19 05/02/19 10:30 11:46 14:35 Temperature 98.2 F 98.0 F Pulse Rate 109 H Pulse Rate [ 89 Apical] Respiratory 16 17 Rate Blood Pressure 133/69 Blood Pressure 123/67 [Right Arm] O2 Sat by Pulse 100 99 99 Oximetry (%) 05/02/19 15:29 Temperature 98.0 F Pulse Rate 111 H Pulse Rate [ Apical] Respiratory 17 Rate Blood Pressure 131/74 Blood Pressure [Right Arm] O2 Sat by Pulse Oximetry (%) GENERAL: Awake, alert, and fully oriented, in no acute distress. HEAD: Normal with no signs of trauma, extraocular movements intact, nares patent , moist mucous membranes, trachea midline. LUNGS: Breath sounds equal, clear to auscultation bilaterally. No wheezes, and no crackles. No accessory muscle use. HEART: Tachycardic, normal S1 and S2 without murmur, rub or gallop. ABDOMEN: Soft, non-tender, not distended, no guarding, no rebound, no masses. UPPER EXTREMITIES: 2+ pulses, warm, well-perfused. No cyanosis. No clubbing. Cap refill <2 seconds. No peripheral edema. LOWER EXTREMITIES: 2+ pulses, warm, well-perfused. No calf tenderness. No peripheral edema. NEUROLOGICAL: Cranial nerves II-XII grossly intact. Normal speech. Gait not assessed. PSYCHIATRIC: Cooperative. Good eye contact. Appropriate mood and affect. SKIN: Warm, dry, no rashes or lesions noted. Laboratory Results - last 24 hr 05/02/19 05/02/19 05/02/19 11:25 11:25 11:25 WBC 8.4 RBC 3.20 L Hgb 5.6 L* Hct 19.6 L D MCV 61.3 L MCH 17.4 L D MCHC 28.3 L RDW 21.7 H Plt Count 416 D MPV 8.7 Absolute Neuts (auto) 7.0 Neutrophils % 83.7 H D Lymphocytes % 11.1 D Monocytes % 3.7 L Eosinophils % 0.1 D Basophils % 1.4 Nucleated RBC % 0 Platelet Estimate Normal Anisocytosis 2+ Microcytosis 2+ PT with INR INR PTT (Actin FS) 28.9 Sodium Cancelled Potassium Cancelled Chloride Cancelled Carbon Dioxide Cancelled Anion Gap Cancelled BUN Cancelled Creatinine Cancelled Est GFR (CKD-EPI)AfAm Cancelled Est GFR (CKD-EPI)NonAf Cancelled Random Glucose Cancelled Calcium Cancelled Total Bilirubin Cancelled AST Cancelled ALT Cancelled Alkaline Phosphatase Cancelled Creatine Kinase 44 Troponin I < 0.02 Total Protein Cancelled Albumin Cancelled Blood Type Antibody Screen Crossmatch 05/02/19 05/02/19 05/02/19 11:25 11:25 11:25 WBC RBC Hgb Hct MCV MCH MCHC RDW Plt Count MPV Absolute Neuts (auto) Neutrophils % Lymphocytes % Monocytes % Eosinophils % Basophils % Nucleated RBC % Platelet Estimate Anisocytosis Microcytosis PT with INR 11.90 INR 1.01 PTT (Actin FS) Sodium 137 Potassium 3.2 L Chloride 102 Carbon Dioxide 27 Anion Gap 9 BUN 21.1 H Creatinine 1.0 Est GFR (CKD-EPI)AfAm 95.73 Est GFR (CKD-EPI)NonAf 82.60 Random Glucose 104 Calcium 9.8 Total Bilirubin 0.4 AST 11 L ALT 15 Alkaline Phosphatase 65 Creatine Kinase Troponin I Total Protein 7.1 Albumin 4.1 Blood Type O POSITIVE Antibody Screen Positive Crossmatch See Detail 05/02/19 15:10 WBC 8.5 RBC 3.08 L Hgb 5.3 L* Hct 18.8 L MCV 61.1 L MCH 17.1 L MCHC 28.1 L RDW 22.2 H Plt Count 448 H MPV 8.3 Absolute Neuts (auto) Neutrophils % Lymphocytes % Monocytes % Eosinophils % Basophils % Nucleated RBC % Platelet Estimate Anisocytosis Microcytosis PT with INR INR PTT (Actin FS) Sodium Potassium Chloride Carbon Dioxide Anion Gap BUN Creatinine Est GFR (CKD-EPI)AfAm Est GFR (CKD-EPI)NonAf Random Glucose Calcium Total Bilirubin AST ALT Alkaline Phosphatase Creatine Kinase Troponin I Total Protein Albumin Blood Type Antibody Screen Crossmatch Active Medications Generic Name Dose Route Start Last Admin Trade Name Freq PRN Reason Stop Dose Admin Potassium Chloride/Dextrose/Sod Cl 10 meq in 1,000 mls @ 83 mls/hr 05/02/19 14 :00 D5-1/2ns+10 Meq Kcl - IV ASDIR JAZ Pantoprazole Sodium 40 mg 05/03/19 10:00 Protonix - PO DAILY [facility] ASSESSMENT/PLAN: 58 M with h/o anemia requiring transfusion, GI bleed of unclear etiology, presenting to ED with 4 days of BRBPR (ending 2 days ago) and weakness. Patient refusing exam, interventions, accepts transfusion / fluids / protonix. Currently hemodynamically stable aside from mild tachycardia, with no complaints. #Neuro: TAMMY (no active issues) - Monitor mental status, currently A&Ox3 - No pain at the current time #CV: Hx of HTN, unclear baseline pressure, tachycardic on arrival presumably 2/ 2 anemia - Monitor vitals - Maintain MAPs >65 - Would do med rec, patient without PCP - Will use PRN BP meds once appropriate #Pulm: TAMMY - Monitor vitals - Maintain SPO2 >92% #Renal: TAMMY - Trend Cr - Monitor I&O, UOP - Monitor lytes, replete as needed #GI: Active GIB, Hx of same, no prior workup other than iron studies - NPO given GIB - Trend H&H - Protonix IV BID - 2 U PRBC ordered - F/u CTAP read, oral and IV contrast - GI consulted #ID: [id number] - Monitor for fever - No leukocytosis #PPX: - Holding heparin given GIB - Protonix #Dispo: - Would benefit from ICU monitoring - Thank you for this consultative opportunity Visit type - Emergency Visit Emergency Visit: Yes ED Registration Date: 05/02/19 Care time: The patient presented to the Emergency Department on the above date and was hospitalized for further evaluation of their emergent condition. - New Patient This patient is new to me today: Yes Date on this admission: 05/02/19 - Critical Care Critical Care patient: Yes Total Critical Care Time (in minutes): 36 Critical Care Statement: The care of this patient involved high complexity decision making to prevent further life threatening deterioration of the patient 's condition and/or to evaluate & treat vital organ system(s) failure or risk of failure. ATTENDING PHYSICIAN STATEMENT I saw and evaluated the patient. I reviewed the resident's note and discussed the case with the resident. I agree with the resident's findings and plan as documented. SUBJECTIVE: OBJECTIVE: ASSESSMENT AND PLAN:
[2019-05-02 17:03] LABS: HEMATOCRIT 18.7 % (35.4-49); MCHC 28.1 g/dl (32.0-35.9); MEAN CELL VOLUME 60.5 fl (80-96); MEAN PLT VOLUME 8.5 fl (7.5-11.1); PLATELET COUNT 394 K/MM3 (134-434); WHITE BLOOD COUNT 6.7 K/mm3 (4.0-10.0)
[2019-05-02 17:13] LABS: HEMOGLOBIN 5.3 GM/dL (11.7-16.9)
--- NOTE | 2019-05-02 17:53 | PN ---
Teaching Attending Note Name of Resident: Peter Alexander ATTENDING PHYSICIAN STATEMENT I saw and evaluated the patient. I reviewed the resident's note and discussed the case with the resident. I agree with the resident's findings and plan as documented. SUBJECTIVE: Patient is a 58 yom with a PMHx of HTN and migraines who presents to the hospital for having BRBPR x 3 days. initially had a for one day then bleeding stopped, painless bleeding. Patient refusing to have a CT scan of the abdomen, states that he does not want it now, since he is afraid. denies any drinking. Stated that he was feeling dizzy and weak at home, with shortness of breath. OBJECTIVE: Vital Signs Temperature 98.0 F 05/02/19 15:35 Pulse Rate 111 H 05/02/19 15:35 Respiratory Rate 17 05/02/19 15:35 Blood Pressure 131/74 05/02/19 15:35 O2 Sat by Pulse Oximetry (%) 99 05/02/19 15:35 GENERAL: The patient is awake, alert, and fully oriented, in no acute distress. HEAD: Normal with no signs of trauma. EYES: PERRL, extraocular movements intact, sclera anicteric, pale conjuntiva ENT: Ears normal, oropharynx clear without exudates, moist mucous membranes. NECK: Trachea midline, full range of motion, supple. LUNGS: Breath sounds equal, clear to auscultation bilaterally, no wheezes, no crackles, no accessory muscle use. HEART: Regular rate and rhythm, S1, S2 without murmur, rub or gallop. ABDOMEN: Soft, nontender, nondistended, normoactive bowel sounds, no guarding, no rebound, no hepatosplenomegaly, no masses. EXTREMITIES: 2+ pulses, warm, well-perfused, no edema. NEUROLOGICAL: Cranial nerves II through XII grossly intact. Normal speech, gait not observed. PSYCH: Normal mood, normal affect. SKIN: Warm, dry, normal turgor, no rashes or lesions noted Rectal: refused CBCD WBC 6.7 K/mm3 (4.0-10.0) 05/02/19 16:30 RBC 3.10 M/mm3 (4.00-5.60) L 05/02/19 16:30 Hgb 5.3 GM/dL (11.7-16.9) L* 05/02/19 16:30 Hct 18.7 % (35.4-49) L 05/02/19 16:30 MCV 60.5 fl (80-96) L 05/02/19 16:30 MCHC 28.1 g/dl (32.0-35.9) L 05/02/19 16:30 RDW 22.0 % (11.9-15.9) H 05/02/19 16:30 Plt Count 394 K/MM3 (134-434) 05/02/19 16:30 MPV 8.5 fl (7.5-11.1) 05/02/19 16:30 CMP Sodium 137 mmol/L (136-145) 05/02/19 11:25 Potassium 3.2 mmol/L (3.5-5.1) L 05/02/19 11:25 Chloride 102 mmol/L (98-107) 05/02/19 11:25 Carbon Dioxide 27 mmol/L (21-32) 05/02/19 11:25 Anion Gap 9 MMOL/L (8-16) 05/02/19 11:25 BUN 21.1 mg/dL (7-18) H 05/02/19 11:25 Creatinine 1.0 mg/dL (0.55-1.3) 05/02/19 11:25 Random Glucose 104 mg/dL (74-106) 05/02/19 11:25 Calcium 9.8 mg/dL (8.5-10.1) 05/02/19 11:25 Total Bilirubin 0.4 mg/dL (0.2-1) 05/02/19 11:25 AST 11 U/L (15-37) L 05/02/19 11:25 ALT 15 U/L (13-61) 05/02/19 11:25 Alkaline Phosphatase 65 U/L (45-117) 05/02/19 11:25 Total Protein 7.1 g/dl (6.4-8.2) 05/02/19 11:25 Albumin 4.1 g/dl (3.4-5.0) 05/02/19 11:25 CARDIAC ENZYMES Creatine Kinase 44 U/L (26-308) 05/02/19 11:25 Troponin I < 0.02 ng/ml (0.00-0.05) 05/02/19 11:25 Current Medications Generic Name Dose Route Start Last Admin Trade Name Yaritza PRN Reason Stop Dose Admin Chlorhexidine Gluconate 1 applic 05/02/19 22:00 Hibiclens For Decolonization - TP HS JAZ Potassium Chloride/Dextrose/Sod Cl 10 meq in 1,000 mls @ 83 mls/hr 05/02/19 14 :00 05/02/19 16:04 D5-1/2ns+10 Meq Kcl - IV 83 mls/hr ASDIR JAZ Administration Mupirocin 1 applic 05/02/19 22:00 Bactroban Ointment (For Decolonization) - NS 05/07/19 21:59 BID JAZ Pantoprazole Sodium 40 mg 05/03/19 10:00 Protonix - PO DAILY [facility] Home Medications Medication Instructions Recorded Amlodipine Besylate 10 mg PO DAILY 08/01/18 Ferrous Sulfate 325 mg PO DAILY #30 tablet 08/02/18 Clonidine HCl 0 mg PO DAILY 02/10/19 ASSESSMENT AND PLAN: Pt is a 58yom with a significant past medical history of HTN and migraines who presents to ED. for having acute GIB, BRBPR, painless x 3 days. Initially the bleeding stopped, then re-bled, decided to come for further w/u, refusing CT of the abdomen since is afraid. #Acute LGI Bleed most likely diverticulosis since it's painless. presented with H/H 5.6/19.6, admit to icu, gi, consulted. On po protonix, npo, ivf, transfuse 2 units GI consulted. Patient is refusing abdominal CT at this time. #Acute blood loss # Acute microcytic anemia: iron supplement at the time of dc #HTN: hold bp meds # acute hypokalemia: replete DVT ppx: no ac, scd admit to ICU cc care time of 35min
--- NOTE | 2019-05-02 18:16 | CON.GI ---
Consult Consult Specialty:: GI Referred by:: Hospitalist Service Reason for Consultation:: Anemia - History of Present Illness Chief Complaint: Anemia, rectal bleeding History of Present Illness: 58M admitted for evaluation of weakness. Hgb 5.6. Notices intermittent BRBPR with and without bowel movements. Admitted for similar episode in 02/13, however signed out AMA. Evaluated by Dr. Lopez 02/13 for similar issues. She advised EGD/Colonoscopy, however he declined. He has never had a colonoscopy. He denies abdominal pain, change in stool caliber, unintentional weight loss. There is no family history of colorectal cancer or other GI malignancy. Sister present at bedside. He explains that he is depressed and says that he follows with a psychiatrist regularly (states that he takes seroquel) - History Source History Provided By: Patient, Medical Record Limitations to Obtaining History: No Limitations - Past Medical History Cardio/Vascular: Yes: HTN Psych: Yes: Depression - Past Surgical History Additional Surgical History: Denies - Alcohol/Substance Use Hx Alcohol Use: No - Smoking History Smoking history: Current every day smoker Have you smoked in the past 12 months: Yes Aproximately how many cigarettes per day: 10 - Social History Usual Living Arrangement: Alone ADL: Independent Occupation: Unemployed Place of : Other ([place]) Came to [place]year[place] 1967 History of Recent Travel: No Home Medications - Allergies Allergies/Adverse Reactions: Allergies Allergy/AdvReac Type Severity Reaction Status Date / Time No Known Allergies Allergy Verified 05/02/19 11:14 - Home Medications Home Medications: Ambulatory Orders Amlodipine Besylate 10 mg PO DAILY 08/01/18 Ferrous Sulfate 325 mg PO DAILY #30 tablet 08/02/18 Clonidine HCl 0 mg PO DAILY 02/10/19 Family Medical History Other Family History: Father: Patient states that he killed his father at age 10 while living in [place]. Mother: : 54: MVA. 2 brothers, 1 sister: alcoholics. No children. No family history of colorectal cancer or other GI malignancy Review of Systems - Review of Systems Constitutional: reports: Weakness. denies: Chills, Unintentional Wgt. Loss Cardiovascular: denies: Chest Pain Respiratory: denies: SOB Gastrointestinal: reports: Rectal Bleeding. denies: Abdominal Pain, Vomiting, Vomiting Blood Physical Exam-GI Vital Signs: Vital Signs Temperature 98.0 F 05/02/19 15:35 Pulse Rate 111 H 05/02/19 15:35 Respiratory Rate 17 05/02/19 15:35 Blood Pressure 131/74 05/02/19 15:35 O2 Sat by Pulse Oximetry (%) 99 05/02/19 15:35 Constitutional: Yes: Calm Eyes: No: Sclera Icterus Cardiovascular: Yes: Tachycardia. No: Murmur Respiratory: Yes: CTA Bilaterally Gastrointestinal Inspection: No: Distention ...Auscultate: Yes: Normoactive Bowel Sounds ...Palpate: No: Hepatomegaly, Splenomegaly, Tenderness ...Percussion: No: Tympanitic ...Rectal Exam: Yes: Other (Refused by patient) Neurological: Yes: Alert Labs: CBC, BMP 05/02/19 16:30 05/02/19 11:25 INR, PTT INR 1.01 (0.83-1.09) 05/02/19 11:25 Hepatic Panel Total Bilirubin 0.4 mg/dL (0.2-1) 05/02/19 11:25 AST 11 U/L (15-37) L 05/02/19 11:25 ALT 15 U/L (13-61) 05/02/19 11:25 Alkaline Phosphatase 65 U/L (45-117) 05/02/19 11:25 Albumin 4.1 g/dl (3.4-5.0) 05/02/19 11:25 Assessment/Plan Anemia: Noted significantly iron deficient in 02/13. Discussed this with Mr. Child. Advised that to exclude pathology such as bleeding blood vessels, PUD, polyps, or cancers of the GI tract, EGD and Colonoscopy could be undertaklen. Discussed potential risks of the procedure like but not limited to bleeding, perofration requiring surgery to repair, infection, sedation medication effects all of which could be potentially life threatening. He has refused procedures at this time and said he would do it at a later date. I explained that transfusions are difficult for him giving that he had antibodies and that performing these procedures while he is optimized now would be For now: Keep hgb 7-8 Consider hematology evaluation with IV iron therapy. Ferritin was 1.7 in 02/13 Psych eval
[2019-05-02] MEDS ORDERED: CHLORHEXIDINE GLUCONATE 4% CLEANSER FOR DECOLONIZATION TP SCH (22:00)
[2019-05-02] MEDS ORDERED: MUPIROCIN 2% TOPICAL OINTMENT FOR DECOLONIZATION NS SCH (22:00)
[2019-05-02 22:06] VITALS: TEMP 98.4
[2019-05-03 00:32] VITALS: BP 111/70; PULSE 88
--- NOTE | 2019-05-03 01:35 | PN ---
Progress Note (short form) - Note Progress Note: Patient decided to leave against medical advice at 12:30 AM. Pt. stated that he was upset that he could not eat food. Pt. stated that he was going to [facility] to receive blood. Risks of continued bleeding, heart attack and were explained. Pt. acknowledged that he understood the risks.
[2019-05-03] MEDS ORDERED: PANTOPRAZOLE 40 MG TABLET (FP) PO SCH ×2 (10:00)
== END 2019-05-03 00:30 | disposition left against medical advice (07) | DRG 378 ==
LOC: JER 10:18 → JERBED 13:22 → J6S 15:01 → JICU 16:55
PROVIDERS: ADMIT Internal Medicine; ATTEND Internal Medicine
PROC: 30233N1 Transfusion of Nonautologous Red Blood Cells into Peripheral Vein, Percutaneous Approach (ICD-10-PCS; principal; 2019-05-02)
DX: K92.2 Gastrointestinal hemorrhage, unspecified (principal); D62 Acute posthemorrhagic anemia; R64 Cachexia; I10 Essential (primary) hypertension; N20.0 Calculus of kidney; F32.9 Major depressive disorder, single episode, unspecified; F17.210 Nicotine dependence, cigarettes, uncomplicated; G43.909 Migraine, unspecified, not intractable, without status migrainosus; R00.0 Tachycardia, unspecified; E87.6 Hypokalemia; K57.90 Diverticulosis of intestine, part unspecified, without perforation or abscess without bleeding; Z68.20 Body mass index [BMI] 20.0-20.9, adult
CPT/HCPCS: 36415; 36430; 36511; 80053; 82378; 82550; 82607; 83540; 83550; 84484; 85025; 85027; 85610; 85730; 86301; 86850; 86870; 86900; 86901; 86902; 86922; 93005; 93010; 99285-25; P9038; P9058

== ENCOUNTER 2019-11-22 10:01 | Inpatient (IN) | payer OTHER ==
[2019-11-22] MEDS ORDERED: LIDOCAINE VISCOUS 2% ORAL/TOP 20 ML UNIT-DOSE CUP ONE (10:24)
[2019-11-22] MEDS ORDERED: ACETAMINOPHEN 1000 MG/100 ML VIAL (NON FORMULARY) IVPB ONE (10:39)
--- NOTE | 2019-11-22 10:52 | PDOC ---
Attending Attestation - Resident Resident Name: Antoni Leigh - ED Attending Attestation I have performed the following: I have examined & evaluated the patient, The case was reviewed & discussed with the resident, I agree w/resident's findings & plan, Exceptions are as noted - HPI HPI: 11/22/19 10:49 59y M hx of GIB presens with complaint of rectal mass and rectal bleeding. Pt was in his USOH until approx 3am when he had a bm, felt a mass in his rectum with pain and has been unable to reuce the mass. notes that there was some blood noted on his tissue. But denies any blood in the toilet bowl or black stool. He denies any other chest pain, shortness of breath, lightheadedness, nausea, vomiting, anterior abdominal pain, palpitations. States that sometimes he has hemorrhoids but seems to reduce spontaneously. He also feels urinary urgency and states he has been unable to urinate since last night. - Physicial Exam PE: 11/22/19 10:51 GENERAL: The patient is awake, alert, and fully oriented, Nontoxic - in no acute distress. ABDOMEN: Soft, nontender, No guarding, no rebound. No CVA tenderness RECAL: exernal hemorroids, +rectal prolapse vs inerna hemoroid EXTREMITIES: Normal range of motion, no edema. NEUROLOGICAL: No facial assymetry, Normal speech, moving all 4 ext sponanoeuly nd symmetrically PSYCH: Normal mood, normal affect. SKIN: Warm, Dry, normal turgor, - Medical Decision Making 11/22/19 10:51 rectal prolpase vs internal hemorroid (non thrombosed) attempted reduction, but would immediatlye prolpase will dw surgery will reasses 11/22/19 13:51 case dw surgery requests admission for further managment Discharge - Discharge Information Problems reviewed: Yes Clinical Impression/Diagnosis: Rectal prolapse Condition: Stable Disposition: TRANSFER ACUTE CARE/OTHER HOSP - Follow up/Referral - Patient Discharge Instructions - Post Discharge Activity
--- NOTE | 2019-11-22 10:54 | PDOC ---
History of Present Illness - General Chief Complaint: Rectal Bleed Stated Complaint: RECTAL BLEEDING Time Seen by Provider: 11/22/19 10:08 - History of Present Illness Initial Comments: Mark Child is a 59 y/o male with reported PMH significant for HTN, infusion dependent anemia, GI/rectal bleed (ICU in Apr 2019), presenting today with rectal prolapse. Reports that he was having a bowel movement at around 3am this morning when he felt a bulge at his anus. Reports minimal bleed on the tissue but no blood in the stool or in the toilet. He attempted manual reduction but was unable to reduce. Presenting to the ER for pain and prolapse. Reports that he has had past episodes of similar but was able to reduce on his own. No chest pain/shortness of breath. No bleeding from the rectum. Reports being unable to urinate and pain over the rectum. No abdominal pain. No back pain. No leg swelling. No dizziness. No weakness. PMH: migraines, depression Past History - Medical History Allergies/Adverse Reactions: Allergies Allergy/AdvReac Type Severity Reaction Status Date / Time No Known Allergies Allergy Verified 11/22/19 10:28 Home Medications: Ambulatory Orders Amlodipine Besylate 10 mg PO DAILY 08/01/18 Anemia: Yes (blood transfusion) COPD: No HTN: Yes Kidney Stones: Yes Psychiatric Problems: Yes (depression) - Surgical History Abdominal Surgery: No Appendectomy: No Cardiac Surgery: No - Immunization History Immunization Up to Date: Yes - Psycho-Social/Smoking History Smoking Status: Yes Smoking History: Current every day smoker Have you smoked in the past 12 months: Yes Number of Cigarettes Smoked Daily: 10 Cigars Per Day: 0 Information on smoking cessation initiated: No 'Breaking Loose' booklet given: 09/13/12 - Substance Abuse Hx (Audit-C & DAST Scrn) How often the patient has a drink containing alcohol: Monthly or less Number of drinks the patient has on a typical day: 1 or 2 How often the patient has six or more drinks on one occasion: Less than monthly Score: In Men: 4 or > Positive; In Women: 3 or > Positive: 2 Screen Result (Pos requires Nsg. Audit-10AR): Negative In the last yr the pt used illegal drug/Rx for NonMed reason: No Score: Yes response is considered Positive: 0 Screen Result (Positive result requires Nsg. DAST-10): Negative Review of Systems - Review of Systems Comments:: GENERAL/CONSTITUTIONAL: No fever or chills. No weakness._ HEAD, EYES, EARS, NOSE AND THROAT: No change in vision. No change in hearing. No sore throat._ CARDIOVASCULAR: No chest pain or shortness of breath_ RESPIRATORY: Denies cough, hemoptysis_ GASTROINTESTINAL: No nausea, vomiting. Reports constipation. Reports rectal prolapse and pain. GENITOURINARY: No dysuria, frequency. Reports difficulty urinating. MUSCULOSKELETAL: No joint or muscle swelling or pain. No neck or back pain._ SKIN: No rash_ NEUROLOGIC: No headache, vertigo, loss of consciousness, or change in strength/sensation._ ENDOCRINE: No increased thirst. No abnormal weight change_ HEMATOLOGIC/LYMPHATIC: No anemia, easy bleeding, or history of blood clots._ ALLERGIC/IMMUNOLOGIC: No hives or skin allergy. *Physical Exam - Vital Signs Last Vital Signs Temp Pulse Resp BP Pulse Ox 97.8 F 112 H 16 137/74 100 11/22/19 10:11/22/19 10:03 11/22/19 10:03 11/22/19 10:11/22/19 10:03 - Physical Exam GENERAL: Awake, alert, and oriented to person/place/time, in no acute distress_ HEAD: No signs of trauma, normocephalic, atraumatic _ EYES: PERRLA, EOMI, sclera anicteric, conjunctiva clear_ ENT: Hearing grossly normal, nares patent, oropharynx clear without exudates. No uvular deviation. Moist mucosa_ NECK: Normal ROM, supple, no lymphadenopathy, JVD, or masses_ LUNGS: No distress, speaks in full sentences, clear to auscultation bilaterally _ HEART: Regular rate and rhythm, normal S1 and S2, no murmurs appreciated, peripheral pulses normal and equal bilaterally._ ABDOMEN: Soft, nontender, normoactive bowel sounds. No guarding, no rebound. No masses_ EXTREMITIES: Normal inspection, Normal range of motion, no edema. No clubbing or cyanosis_ NEUROLOGICAL: Cranial nerves II through XII grossly intact. Normal speech, normal gait, no focal sensorimotor deficits _ SKIN: Warm, Dry, normal turgor, no rashes or lesions noted_ RECTAL: Decreased rectal tone. No stool in the rectal vault. External hemorrhoid and prolapsed Grade V. Appears well vascularized with no signs of vascular compromise. No obvious bleeding. No obvious foreign body. ED Treatment Course - LABORATORY CBC & Chemistry Diagram: 11/22/19 10:40 11/22/19 10:40 Medical Decision Making - Medical Decision Making 59M hx of infusion dependent anemia, GI bleed (ICU 04/2019), presenting today with rectal prolapse after bowel movement and hemorrhoids. -cbc, cmp -type and screen, coags -ua, ucx 11/22/19 10:54 POCUS bladder shows 346 cc in the bladder. No obvious signs of hydronephrosis. Davidson placement. Manual reduction of rectal prolapse attempted. Partial reduction achieved, but pt has poor rectal tone. Surgery consult. 11/22/19 11:05 D/w Dr. Hernandez who will evaluate the patient. 11/22/19 11:44 Labs and UA reviewed. Laboratory Last Values WBC 17.4 K/mm3 (4.0-10.0) H 11/22/19 10:40 RBC 4.62 M/mm3 (4.00-5.60) 11/22/19 10:40 Hgb 7.9 GM/dL (11.7-16.9) L 11/22/19 10:40 Hct 28.4 % (35.4-49) L D 11/22/19 10:40 MCV 61.4 fl (80-96) L 11/22/19 10:40 MCH 17.0 pg (25.7-33.7) L 11/22/19 10:40 MCHC 27.8 g/dl (32.0-35.9) L 11/22/19 10:40 RDW 22.0 % (11.9-15.9) H 11/22/19 10:40 Plt Count 338 K/MM3 (134-434) 11/22/19 10:40 MPV 8.8 fl (7.5-11.1) 11/22/19 10:40 Absolute Neuts (auto) 16.5 K/mm3 (1.5-8.0) H 11/22/19 10:40 Neutrophils % 95.1 % (42.8-82.8) H 11/22/19 10:40 Lymphocytes % 1.7 % (8-40) L D 11/22/19 10:40 Monocytes % 2.9 % (3.8-10.2) L 11/22/19 10:40 Eosinophils % 0.0 % (0-4.5) D 11/22/19 10:40 Basophils % 0.3 % (0-2.0) 11/22/19 10:40 Nucleated RBC % 0 % (0-0) 11/22/19 10:40 PT with INR 12.40 SEC (9.7-13.0) 11/22/19 10:40 INR 1.05 (0.83-1.09) 11/22/19 10:40 PTT (Actin FS) 30.1 SECONDS (25.2-36.5) 11/22/19 10:40 Sodium 142 mmol/L (136-145) 11/22/19 10:40 Potassium 4.0 mmol/L (3.5-5.1) 11/22/19 10:40 Chloride 110 mmol/L (98-107) H 11/22/19 10:40 Carbon Dioxide 25 mmol/L (21-32) 11/22/19 10:40 Anion Gap 8 MMOL/L (8-16) 11/22/19 10:40 BUN 16.4 mg/dL (7-18) 11/22/19 10:40 Creatinine 0.8 mg/dL (0.55-1.3) 11/22/19 10:40 Est GFR (CKD-EPI)AfAm 113.33 11/22/19 10:40 Est GFR (CKD-EPI)NonAf 97.78 11/22/19 10:40 Random Glucose 100 mg/dL (74-106) 11/22/19 10:40 Calcium 10.4 mg/dL (8.5-10.1) H 11/22/19 10:40 Total Bilirubin 0.3 mg/dL (0.2-1) 11/22/19 10:40 AST 14 U/L (15-37) L 11/22/19 10:40 ALT 15 U/L (13-61) 11/22/19 10:40 Alkaline Phosphatase 80 U/L (45-117) 11/22/19 10:40 Total Protein 7.7 g/dl (6.4-8.2) 11/22/19 10:40 Albumin 4.7 g/dl (3.4-5.0) 11/22/19 10:40 Urine Color Yellow 11/22/19 10:57 Urine Appearance Cloudy 11/22/19 10:57 Urine pH 6.5 (5.0-8.0) D 11/22/19 10:57 Ur Specific [place] 1.020 (1.010-1.035) 11/22/19 10:57 Urine Protein Negative (NEGATIVE) 11/22/19 10:57 Urine Glucose (UA) Negative (NEGATIVE) 11/22/19 10:57 Urine Ketones Negative (NEGATIVE) 11/22/19 10:57 Urine Blood Trace-intact (NEGATIVE) 11/22/19 10:57 Urine Nitrite Negative (NEGATIVE) 11/22/19 10:57 Urine Bilirubin Negative (NEGATIVE) 11/22/19 10:57 Urine Urobilinogen 0.2 mg/dL (0.2-1.0) 11/22/19 10:57 Ur Leukocyte Esterase Negative (NEGATIVE) 11/22/19 10:57 11/22/19 12:25 D/w Dr. Hernandez who recommends saline gauze pads, reverse trendelenberg, colace, metamucil, XR abdomen, liquid diet, admission. 11/22/19 12:42 D/w Dr. Ruiz who accepts the patient for admission. Discharge - Discharge Information Problems reviewed: Yes Clinical Impression/Diagnosis: Rectal prolapse Condition: Stable - Admission Yes - Follow up/Referral - Patient Discharge Instructions - Post Discharge Activity
[2019-11-22] MEDS ORDERED: ACETAMINOPHEN INJECTION 100 ML IVPB ONE (10:59)
[2019-11-22 11:16] LABS: BASO % 0.3 % (0-2.0); HEMATOCRIT 28.4 % (35.4-49); HEMOGLOBIN 7.9 GM/dL (11.7-16.9); LYMPH % 1.7 % (8-40); MCHC 27.8 g/dl (32.0-35.9); MEAN CELL VOLUME 61.4 fl (80-96); MEAN PLT VOLUME 8.8 fl (7.5-11.1); MONO % 2.9 % (3.8-10.2); NEUT % 95.1 % (42.8-82.8); PLATELET COUNT 338 K/MM3 (134-434); RBC 4.62 M/mm3 (4.00-5.60); WHITE BLOOD COUNT 17.4 K/mm3 (4.0-10.0)
[2019-11-22] MEDS ORDERED: morphine CARPU-JECT 2 MG/1 ML DISP.SYRIN IVPUSH ONE ×2 (11:21→12:09)
[2019-11-22] MEDS ORDERED: MORPHINE SULFATE 2 MG/ML VIAL ONE ×3 (11:22→14:08)
[2019-11-22 11:24] LABS: INR 1.05 (0.83-1.09); PROTHROMBIN TIME (PATIENT) 12.4 SEC (9.7-13.0)
[2019-11-22 11:25] LABS: PH,URINE 6.5 (5.0-8.0); URINE APPEARANCE Cloudy; URINE BILIRUBIN Negative (NEGATIVE); URINE COLOR Yellow; URINE GLUCOSE (UA) Negative (NEGATIVE); URINE KETONE Negative (NEGATIVE); URINE LEUK ESTERASE Negative (NEGATIVE); URINE NITRITE Negative (NEGATIVE); URINE PROTEIN Negative (NEGATIVE); URINE UROBILINOGEN 0.2 mg/dL (0.2-1.0)
[2019-11-22 11:26] LABS: ACTIVATED PTT 30.1 SECONDS (25.2-36.5)
[2019-11-22 11:35] LABS: ALBUMIN 4.7 g/dl (3.4-5.0); BILIRUBIN,TOTAL 0.3 mg/dL (0.2-1); BLOOD UREA NITROGEN 16.4 mg/dL (7-18); CALCIUM 10.4 mg/dL (8.5-10.1); CREATININE 0.8 mg/dL (0.55-1.3); TOT PROT 7.7 g/dl (6.4-8.2)
[2019-11-22] MEDS ORDERED: DOCUSATE SODIUM 100 MG CAPSULE (FP) PO ONE ×2 (12:34→12:56)
--- NOTE | 2019-11-22 12:49 | HP ---
Admitting History and Physical - Primary Care Physician PCP: Tacho Ruiz - Admission Chief Complaint: rectal pain since am History of Present Illness: Mark Child is a 59 y/o male with reported PMH significant for HTN, infusion dependent anemia, GI/rectal bleed (ICU in Apr 2019), presenting today with rectal prolapse. Reports that he was having a bowel movement at around 3am this morning when he felt a bulge at his anus. Reports minimal bleed on the tissue but no blood in the stool or in the toilet. He attempted manual reduction but was unable to reduce. Presenting to the ER for pain and prolapse. Reports that he has had past episodes of similar but was able to reduce on his own. No chest pain/shortness of breath. No bleeding from the rectum. Reports being unable to urinate and pain over the rectum. No abdominal pain. No back pain. No leg swelling. No dizziness. No weakness. PT WAS admitted here in the past in ICU, with hb of 5, and was transfused, and was advised to have GI rowe, pt refused,and was supposed to see the GI as outpt, pt refused, - Past Medical History Cardiovascular: Yes: HTN Heme/Onc: Yes: Anemia Psych: Yes: Depression - Smoking History Smoking history: Current every day smoker Have you smoked in the past 12 months: Yes Aproximately how many cigarettes per day: 10 - Alcohol/Substance Use Hx Alcohol Use: No - Social History ADL: Independent Occupation: Unemployed History of Recent Travel: No Home Medications - Allergies Allergies/Adverse Reactions: Allergies Allergy/AdvReac Type Severity Reaction Status Date / Time No Known Allergies Allergy Verified 11/22/19 10:28 - Home Medications Home Medications: Ambulatory Orders Amlodipine Besylate 10 mg PO DAILY 08/01/18 Family Medical History Family History: Unremarkable Review of Systems - Review of Systems Constitutional: reports: No Symptoms Eyes: reports: No Symptoms HENT: reports: No Symptoms Neck: reports: No Symptoms Cardiovascular: reports: No Symptoms Respiratory: reports: No Symptoms Gastrointestinal: reports: Other (rectal pain) Physical Examination Vital Signs: Vital Signs Temperature 97.8 F 11/22/19 10:03 Pulse Rate 92 H 11/22/19 11:30 Respiratory Rate 18 11/22/19 11:30 Blood Pressure 126/78 11/22/19 11:30 O2 Sat by Pulse Oximetry (%) 98 11/22/19 11:30 Constitutional: Yes: Well Nourished, Mild Distress (from pain,) Eyes: Yes: Conjunctiva Clear, EOM Intact HENT: Yes: Atraumatic, Normocephalic Neck: Yes: Supple, Trachea Midline Cardiovascular: Yes: Regular Rate and Rhythm Respiratory: Yes: Regular, CTA Bilaterally Gastrointestinal: Yes: Normal Bowel Sounds, Soft ...Rectal Exam: Yes: Other (Decreased rectal tone. No stool in the rectal vault. External hemorrhoid and prolapsed rectum, . Appears well vascularized with no signs of vascular compromise. No obvious bleeding.) Extremities: Yes: WNL Wound/Incision: Yes: Clean/Dry, Well Approximated Neurological: Yes: WNL, Alert, Oriented ...Motor Strength: WNL Psychiatric: Yes: WNL, Oriented Labs: CBC, BMP 11/22/19 10:40 11/22/19 10:40 Imaging - Results Chest X-ray: Image Reviewed X-ray: Image Reviewed Assessment/Plan 59M hx of infusion dependent anemia, GI bleed (ICU 04/2019), presenting today with rectal prolapse after bowel movement and hemorrhoids. with recatl was seen by the surgery dr Hernandez\ start conservative treatment, and case discussed and start ivf pain management, wich yolis bath and reverse trendelenburg position if not improved will transfer for colorectal surgical evaluation to other facility, 2. high Wbc afebrile ua negative, will get the blood cultures no sign of infection, will observe, and check repeat, also checked manual diff, no bands, no need for abx fu the wbc in am, and monitor the temp. 3, anemia, pt with h/o anemia requiting transfusion in the past, refused GI rowe in the past after knowing the risks, check iron studies, and will transfuse if needed no bleedign, GI evaluation, 4. pt with h/o mild depression, lost his mon recently. grieving, not taking meds, helped with psychotherapy, no SI< no HI. has insomnia will continue dvt prophylaxis, will use scd, no A/C bc of FBPR, and will observe, Visit type - Emergency Visit Emergency Visit: Yes ED Registration Date: 11/22/19 Care time: The patient presented to the Emergency Department on the above date and was hospitalized for further evaluation of their emergent condition. - New Patient This patient is new to me today: Yes Date on this admission: 11/22/19 - Critical Care Critical Care patient: No
[2019-11-22] MEDS: DOCUSATE SODIUM 100 MG CAPSULE (FP) PO SCH ×2 (14:14→21:34)
[2019-11-22] MEDS: DEXTROSE 5%-0.45% SALINE 1,000 ML IV SCH (14:15)
[2019-11-22] MEDS: MORPHINE SULFATE 2 MG/ML VIAL IVPUSH PRN ×2 (14:16→20:21)
[2019-11-22 14:30] LABS: ANISOCYTOSIS 1+; MACROCYTOSIS 0; PLATELET ESTIMATE NORMAL
--- NOTE | 2019-11-22 16:23 | CONSULT ---
- Consultation REQUESTING PROVIDER: Antoni Leigh MD CONSULT REQUEST: We have been asked to surgically evaluate this patient for painful hemorrhoids and bleeding PCP:Tacho Ruiz MD HISTORY OF PRESENT ILLNESS:CTSP for a rectal mass and bleeding after adifficult bowel movement; he has had this before; he came to the ED for evaluation. PMHx: HTN PSHx: none Home Medications Medication Instructions Recorded Amlodipine Besylate 10 mg PO DAILY 08/01/18 Allergies Allergy/AdvReac Type Severity Reaction Status Date / Time No Known Allergies Allergy Verified 11/22/19 10:28 REVIEW OF SYSTEMS: CONSTITUTIONAL: Absent: fever, chills, diaphoresis, generalized weakness, malaise, loss of appetite, weight change CARDIOVASCULAR: Absent: chest pain, syncope, palpitations, irregular heart rate, lightheadedness, peripheral edema RESPIRATORY: Absent: cough, shortness of breath, dyspnea with exertion, wheezing, stridor, hemoptysis GASTROINTESTINAL: Absent: abdominal pain, abdominal distension, nausea, vomiting, diarrhea, constipation, melena, Present: hematochezia GENITOURINARY: Absent: dysuria, frequency, urgency, hesitancy, hematuria, flank pain, genital pain MUSCULOSKELETAL: Absent: myalgia, arthralgia, joint swelling, back pain, neck pain SKIN: Absent: rash, itching, pallor HEMATOLOGIC/IMMUNOLOGIC: Absent: easy bleeding, easy bruising, lymphadenopathy NEUROLOGIC: Absent: headache, focal weakness, paresthesias, dizziness, unsteady gait, seizure, mental status changes, bladder or bowel incontinence PSYCHIATRIC: Absent: anxiety, depression, suicidal or homicidal ideation, hallucinations. PHYSICAL EXAM: GENERAL: Awake, alert, and fully oriented, in no acute distress. HEAD: Normal with no signs of trauma. EYES: PERRL, sclera anicteric, conjunctiva clear. NECK: Normal ROM, supple without lymphadenopathy, JVD, or masses. ABDOMEN: Soft, nontender, not distended, normoactive bowel sounds, no guarding, no rebound, no masses. No organomegaly. MUSCULOSKELETAL: Normal ROM at all joints. No bony deformities or tenderness. No CVA tenderness. UPPER EXTREMITIES: 2+ pulses, warm, well-perfused. No cyanosis. Cap refill <2 seconds. No peripheral edema. LOWER EXTREMITIES: 2+ pulses, warm, well-perfused. No calf tenderness. No peripheral edema. NEUROLOGICAL: Normal speech, gait not observed. PSYCH: Cooperative. Good eye contact. Appropriate mood and affect. SKIN: Warm, dry, normal turgor, no rashes or lesions noted. RECTAL: prolapsed internal hemorrhoids; exam o/w limited by pain. Vital Signs Temperature 98.8 F 11/22/19 14:23 Pulse Rate 89 11/22/19 14:23 Respiratory Rate 18 11/22/19 14:23 Blood Pressure 138/81 11/22/19 14:23 O2 Sat by Pulse Oximetry (%) 98 11/22/19 14:23 Lab Results WBC 17.4 K/mm3 (4.0-10.0) H 11/22/19 10:40 RBC 4.62 M/mm3 (4.00-5.60) 11/22/19 10:40 Hgb 7.9 GM/dL (11.7-16.9) L 11/22/19 10:40 Hct 28.4 % (35.4-49) L D 11/22/19 10:40 MCV 61.4 fl (80-96) L 11/22/19 10:40 MCHC 27.8 g/dl (32.0-35.9) L 11/22/19 10:40 RDW 22.0 % (11.9-15.9) H 11/22/19 10:40 Plt Count 338 K/MM3 (134-434) 11/22/19 10:40 INR 1.05 (0.83-1.09) 11/22/19 10:40 Sodium 142 mmol/L (136-145) 11/22/19 10:40 Potassium 4.0 mmol/L (3.5-5.1) 11/22/19 10:40 Chloride 110 mmol/L (98-107) H 11/22/19 10:40 Carbon Dioxide 25 mmol/L (21-32) 11/22/19 10:40 Anion Gap 8 MMOL/L (8-16) 11/22/19 10:40 BUN 16.4 mg/dL (7-18) 11/22/19 10:40 Creatinine 0.8 mg/dL (0.55-1.3) 11/22/19 10:40 Random Glucose 100 mg/dL (74-106) 11/22/19 10:40 Calcium 10.4 mg/dL (8.5-10.1) H 11/22/19 10:40 Blood Type O POSITIVE 11/22/19 10:40 Antibody Screen Positive 11/22/19 10:40 IMP: doubt rectal prolapse; likely prolapsed internal hemorrhoids PLAN; May have clear liquid diet; advise bed rest; leg elevation; Colace and Metamucil and witch yolis and saline soaked 4 x 4 gauze to rectal area at all times; will require re-evaluation daily nevertheless tx. is conservative at this time; he will require adwquate pain control alternating appropriate doses of morphine/Ofirmev and/or Toradol. João Hernandez MD FACS
[2019-11-22] MEDS ORDERED: ZOLPIDEM TARTRATE 5 MG TABLET PO PRN (17:18)
[2019-11-23] MEDS: DEXTROSE 5%-0.45% SALINE 1,000 ML IV SCH ×2 (00:41→14:56)
[2019-11-23] MEDS: MORPHINE SULFATE 2 MG/ML VIAL IVPUSH PRN ×3 (00:43→13:05)
[2019-11-23] MEDS: DOCUSATE SODIUM 100 MG CAPSULE (FP) PO SCH ×2 (06:16→13:06)
[2019-11-23 07:47] LABS: BASO % 0.4 % (0-2.0); EOS % 0.3 % (0-4.5); HEMOGLOBIN 8.1 GM/dL (11.7-16.9); LYMPH % 10.7 % (8-40); MEAN CELL VOLUME 60.7 fl (80-96); MEAN PLT VOLUME 8.5 fl (7.5-11.1); MONO % 5.2 % (3.8-10.2); NEUT % 83.4 % (42.8-82.8); PLATELET COUNT 291 K/MM3 (134-434); RBC 4.78 M/mm3 (4.00-5.60); RDW 22.4 % (11.9-15.9); WHITE BLOOD COUNT 9.7 K/mm3 (4.0-10.0)
[2019-11-23 08:15] LABS: ALBUMIN 4.4 g/dl (3.4-5.0); BILIRUBIN,TOTAL 0.7 mg/dL (0.2-1); BLOOD UREA NITROGEN 8.8 mg/dL (7-18); CALCIUM 9.8 mg/dL (8.5-10.1); CREATININE 0.7 mg/dL (0.55-1.3); POTASSIUM 3.8 mmol/L (3.5-5.1); TOT PROT 7.3 g/dl (6.4-8.2)
[2019-11-23] MEDS ORDERED: IRON SUCROSE INJECTION 200 MG in SODIUM CHLORIDE 90 ML IVPB ONE (08:30)
[2019-11-23] MEDS ORDERED: PT OWN MED DRAWER 7, Y5N ONE (09:44)
[2019-11-23] MEDS ORDERED: PSYLLIUM 5.85 GM PACKET PO SCH (10:00)
--- NOTE | 2019-11-23 10:02 | PN ---
Progress Note (short form) - Note Progress Note: Attending Surgeon Seen in f/u; c/o pain VSS AF rectum-prolapsed internal hemorrhoids w/slight interval improvement. IMP: as above PLAN: Continue present tx.; may require xfer for services of a [facility]-Rectal surgeon. João Hernandez Md FACS
[2019-11-23 12:00] VITALS: BP 121/84; PULSE 75; TEMP 99
[2019-11-23] MEDS ORDERED: PSYLLIUM 5.85 GM PACKET PO ONE (12:34)
--- NOTE | 2019-11-23 13:35 | PN ---
Teaching Attending Note Name of Resident: Farhan Almeida ATTENDING PHYSICIAN STATEMENT I saw and evaluated the patient. I reviewed the resident's note and discussed the case with the resident. I agree with the resident's findings and plan as documented. SUBJECTIVE: Seen and examined at bedside. Discussed case with surgery. Will attempt to transfer patient to [facility] where for colorectal surgery consult. OBJECTIVE: Last Vital Signs Temp Pulse Resp BP Pulse Ox 99 F 75 18 121/84 99 11/23/19 10:11/23/19 10:11/23/19 10:11/23/19 10:11/23/19 09:00 ASSESSMENT AND PLAN: 59-year-old male history of infusion dependent anemia, GI bleed presents with rectal prolapse versus hemorrhoidal prolapse and leukocytosis. #Rectal versus hemorrhoidal prolapse Surgery on board appreciate recommendations We will attempt to transfer to [facility] for colorectal surgery consult Which yolis bath Pain management Sitz bath #Leukocytosis: resolved Likely reactive in the setting of prolapse Afebrile, does not appear infected No need for antibiotics #Iron deficiency anemia Longstanding Venofer Patient will require a colonoscopy for work-up of chronic GI bleeding
--- NOTE | 2019-11-23 14:59 | DS ---
Physical Exam: SUBJECTIVE: Patient seen and examined at bedside. He endorses continued rectal pain. Patient has not yet passed bowel movement. OBJECTIVE: Vital Signs Period Temp Pulse Resp BP Sys/Galan Pulse Ox Last 24 Hr 98.2 F-99 F 75-85 18-18 121-149/70-84 98-99 PHYSICAL EXAM GENERAL: The patient is awake, alert, and fully oriented, in no acute distress. HEAD: Normal with no signs of trauma. EYES: PERRL, extraocular movements intact, sclera anicteric, conjunctiva clear. ENT: Ears normal, nares patent, oropharynx clear without exudates, moist mucous membranes. NECK: Trachea midline, full range of motion, supple. LUNGS: Breath sounds equal, clear to auscultation bilaterally, no wheezes, no crackles, no accessory muscle use. HEART: Regular rate and rhythm, S1, S2 without murmur, rub or gallop. ABDOMEN: Soft, nontender, nondistended, normoactive bowel sounds, no guarding, no rebound, no hepatosplenomegaly, no masses. RECTAL: 3cm x 2cm prolapsed hemorrhoid vs. rectum noted. [place] to dark red in colour. Equsitely tender to palpation. EXTREMITIES: 2+ pulses, warm, well-perfused, no edema. NEUROLOGICAL: Cranial nerves II through XII grossly intact. Normal speech, gait not observed. PSYCH: Normal mood, normal affect. SKIN: Warm, dry, normal turgor, no rashes or lesions noted. LABS Laboratory Results - last 24 hr 11/22/19 11/22/19 11/22/19 10:40 10:40 13:00 WBC RBC Hgb Hct MCV MCH MCHC RDW Plt Count MPV Absolute Neuts (auto) Neutrophils % Lymphocytes % Monocytes % Eosinophils % Basophils % Nucleated RBC % Sodium 142 Potassium 4.0 Chloride 110 H Carbon Dioxide 25 Anion Gap 8 BUN 16.4 Creatinine 0.8 Est GFR (CKD-EPI)AfAm 113.33 Est GFR (CKD-EPI)NonAf 97.78 Random Glucose 100 Calcium 10.4 H Iron 12 L TIBC 508 H Iron Saturation 2 L Unsaturated IBC 496 H Ferritin 1.6 L Total Bilirubin 0.3 AST 14 L ALT 15 Alkaline Phosphatase 80 LD Total 184 Total Protein 7.7 Albumin 4.7 TSH COVID-19 ([facility]) Not detected Blood Type O POSITIVE Antibody Screen Positive Prewarmed Antibody Srcn Negative Antibody Identification Coldn agglutinin Antigen Identification No Result Required. 11/23/19 11/23/19 06:50 06:50 WBC 9.7 RBC 4.78 Hgb 8.1 L Hct 29.0 L MCV 60.7 L MCH 17.0 L MCHC 28.0 L RDW 22.4 H Plt Count 291 MPV 8.5 Absolute Neuts (auto) 8.1 H Neutrophils % 83.4 H Lymphocytes % 10.7 D Monocytes % 5.2 Eosinophils % 0.3 D Basophils % 0.4 Nucleated RBC % 0 Sodium 136 Potassium 3.8 Chloride 102 Carbon Dioxide 26 Anion Gap 8 BUN 8.8 Creatinine 0.7 Est GFR (CKD-EPI)AfAm 119.72 Est GFR (CKD-EPI)NonAf 103.30 Random Glucose 103 Calcium 9.8 Iron TIBC Iron Saturation Unsaturated IBC Ferritin Total Bilirubin 0.7 AST 17 ALT 14 Alkaline Phosphatase 80 LD Total Total Protein 7.3 Albumin 4.4 TSH 0.39 COVID-19 ([facility]) Blood Type Antibody Screen Prewarmed Antibody Srcn Antibody Identification Antigen Identification HOSPITAL COURSE: Date of Admission:11/22/19 Date of Discharge: 11/23/19 Patient is a 59 year old male with history of infusion dependent anemia, prior GI bleeding (however refused colonoscopy/ endoscopy) presents with complaint of rectal mass. Patient was evaluated by general surgery, with concern for prolapsed internal hemorrhoid vs. rectal prolapse. Recommended colorectal surgery consult. Patient transferred to [facility] for higher level of care, and evaluation by colorectal surgery. Admitted to Dr. Ventura service. Minutes to complete discharge: 36 Discharge Summary Problems reviewed: Yes Reason For Visit: RECTAL PROLAPSE Condition: Stable - Instructions Diet, Activity, Other Instructions: You were evaluated for prolapse of your hemorrhoids. You were evaluated by the General Surgeon, and was recommended [facility]. You are being transferred to [facility] for evaluation of Colorectal Surgery. Follow the discharge instructions of the physicians at [facility]. Follow up with your primary are physician within one - two days after discharge. Return to the nearest emergency department if you experience worsening symptoms, subjective fevers, chills, shortness of breath, chest pain, palpitations, abdominal pain, nausea, vomiting, any trauma or loss of consciousness. Referrals: João Hernandez MD [Staff Physician] - Disposition: TRANSFER ACUTE CARE/OTHER HOSP - Home Medications Comprehensive Discharge Medication List: Ambulatory Orders Amlodipine Besylate 10 mg PO DAILY 08/01/18 This patient is new to me today: Yes Date on this admission: 11/23/19 Emergency Visit: Yes ED Registration Date: 11/22/19 Care time: The patient presented to the Emergency Department on the above date and was hospitalized for further evaluation of their emergent condition. Critical Care patient: No - Discharge Referral Referred to [facility] No ATTENDING PHYSICIAN STATEMENT I saw and evaluated the patient. I reviewed the resident's note and discussed the case with the resident. I agree with the resident's findings and plan as documented. SUBJECTIVE: OBJECTIVE: ASSESSMENT AND PLAN:
== END 2019-11-23 14:50 | disposition short-term general hospital (02) | DRG 395 ==
LOC: JER 10:01 → JERBED 12:41 → J6S 15:08
PROVIDERS: ADMIT Internal Medicine; ATTEND Internal Medicine
DX: K62.3 Rectal prolapse (principal); K64.4 Residual hemorrhoidal skin tags; D72.829 Elevated white blood cell count, unspecified; D50.9 Iron deficiency anemia, unspecified; F17.210 Nicotine dependence, cigarettes, uncomplicated; F32.9 Major depressive disorder, single episode, unspecified; I10 Essential (primary) hypertension; G47.00 Insomnia, unspecified
CPT/HCPCS: 36415; 71045-TC-FY; 74021-TC-FY; 80053; 81003; 82728; 83540; 83550; 83615; 84443; 85025; 85027; 85610; 85730; 86850; 86870; 86900; 86901; 86902; 87040; 87086; 99285-25; J0131; J1756; U0003

== ENCOUNTER 2021-03-27 09:44 | Emergency (ER) | payer OTHER ==
[2021-03-27 09:50] VITALS: TEMP 97
[2021-03-27 10:53] LABS: EPI CELLS 27 /uL (0-25.1); HYALINE CASTS 0 /uL (0-3.1); PH,URINE 6.5 (5.0-8.0); URINE APPEARANCE CLEAR; URINE BACTERIA 99 /uL (0-1359); URINE BILIRUBIN NEGATIVE (NEGATIVE); URINE COLOR YELLOW; URINE GLUCOSE (UA) NEGATIVE (NEGATIVE); URINE KETONE NEGATIVE (NEGATIVE); URINE LEUK ESTERASE TRACE (NEGATIVE); URINE NITRITE NEGATIVE (NEGATIVE); URINE PROTEIN NEGATIVE (NEGATIVE); URINE RBC 266 /uL (0-23.9); URINE UROBILINOGEN 0.2 mg/dL (0.2-1.0); URINE WBC 297 /uL (0-25.8)
[2021-03-27 12:37] LABS: CALCIUM 10.2 mg/dL (8.5-10.1)
[2021-03-27 12:38] LABS: ALBUMIN 4.3 g/dl (3.4-5.0); BLOOD UREA NITROGEN 14.3 mg/dL (7-18)
[2021-03-27 12:41] LABS: CREATININE 0.7 mg/dL (0.55-1.3)
[2021-03-27 12:42] LABS: BILIRUBIN,TOTAL 0.3 mg/dL (0.2-1)
[2021-03-27 12:43] LABS: TOT PROT 7.4 g/dl (6.4-8.2)
[2021-03-27 13:29] VITALS: BP 137/86
[2021-03-27 13:53] VITALS: PULSE 88
== END 2021-03-27 13:54 | disposition home or self-care (01) ==
LOC: JER 09:44
DX: R33.9 Retention of urine, unspecified (principal); N39.0 Urinary tract infection, site not specified; Z46.6 Encounter for fitting and adjustment of urinary device
CPT/HCPCS: 80053; 81003; 87086; 99283-25

== ENCOUNTER 2022-10-06 09:24 | Emergency (ER) | payer OTHER ==
[2022-10-06 09:31] VITALS: BMI 19.8
[2022-10-06 10:50] LABS: PH,URINE 6.5 (5.0-8.0); URINE APPEARANCE CLOUDY; URINE BILIRUBIN NEGATIVE (NEGATIVE); URINE COLOR YELLOW; URINE GLUCOSE (UA) NEGATIVE (NEGATIVE); URINE KETONE 1+ (NEGATIVE); URINE LEUK ESTERASE 1+ (NEGATIVE); URINE NITRITE NEGATIVE (NEGATIVE); URINE PROTEIN 4+ (NEGATIVE); URINE UROBILINOGEN 0.2 mg/dL (0.2-1.0)
[2022-10-06 11:39] LABS: BASO % 0.3 % (0-2.0); EOS % 0.1 % (0-4.5); HEMATOCRIT 44.2 % (35.4-49); HEMOGLOBIN 15.2 GM/dL (11.7-16.9); LYMPH % 6.7 % (8-40); MCH 29.6 pg (25.7-33.7); MCHC 34.5 g/dl (32.0-35.9); MEAN CELL VOLUME 85.8 fl (80-96); MEAN PLT VOLUME 9.8 fl (7.5-11.1); MONO % 3.5 % (3.8-10.2); NEUT % 89.4 % (42.8-82.8); PLATELET COUNT 197 10^3/uL (134-434); RBC 5.15 M/mm3 (4.00-5.60); RDW 13.6 % (11.9-15.9); WHITE BLOOD COUNT 10.1 K/mm3 (4.0-10.0)
[2022-10-06 11:40] LABS: INR 1.03 (0.83-1.09)
[2022-10-06 11:43] LABS: ACTIVATED PTT 34.6 SECONDS (25.2-36.5)
[2022-10-06] MEDS ORDERED: SODIUM CHLORIDE 0.9% 500 ML INFUS.BAG IV ONE (11:48)
[2022-10-06 11:55] LABS: CALCIUM 10.2 mg/dL (8.5-10.1)
[2022-10-06 11:56] LABS: ALBUMIN 4.3 g/dl (3.4-5.0); BLOOD UREA NITROGEN 15.9 mg/dL (7-18)
[2022-10-06 11:59] LABS: CREATININE 0.7 mg/dL (0.55-1.3)
[2022-10-06 12:00] LABS: BILIRUBIN,TOTAL 0.4 mg/dL (0.2-1); TOT PROT 6.9 g/dl (6.4-8.2)
[2022-10-06 13:51] VITALS: BP 147/90; PULSE 99; RESP 20; TEMP 97.2
== END 2022-10-06 14:07 | disposition home or self-care (01) ==
LOC: JER 09:24
DX: R31.9 Hematuria, unspecified (principal); R30.9 Painful micturition, unspecified; R39.198 Other difficulties with micturition; N28.89 Other specified disorders of kidney and ureter
CPT/HCPCS: 36415; 74176-TC; 76775-TC; 80053; 81003; 85025; 85610; 85730; 86850; 86870; 86900; 86901; 86902; 87086; 99285-25

== ENCOUNTER 2022-10-08 20:59 | Inpatient (IN) | payer OTHER ==
[2022-10-08] MEDS ORDERED: SODIUM CHLORIDE 0.9% 500 ML INFUS.BAG IV ONE (21:57)
[2022-10-08 22:38] LABS: BASO % 0.6 % (0-2.0); EOS % 1.1 % (0-4.5); HEMATOCRIT 39.5 % (35.4-49); HEMOGLOBIN 13.2 GM/dL (11.7-16.9); LYMPH % 8.8 % (8-40); MCH 28.6 pg (25.7-33.7); MCHC 33.4 g/dl (32.0-35.9); MEAN CELL VOLUME 85.6 fl (80-96); MEAN PLT VOLUME 9.2 fl (7.5-11.1); MONO % 6.6 % (3.8-10.2); NEUT % 82.9 % (42.8-82.8); PLATELET COUNT 210 10^3/uL (134-434); RBC 4.61 M/mm3 (4.00-5.60); RDW 13.3 % (11.9-15.9); WHITE BLOOD COUNT 11.2 K/mm3 (4.0-10.0)
[2022-10-08 22:51] LABS: INR 0.98 (0.83-1.09); PROTHROMBIN TIME (PATIENT) 11.4 SEC (9.7-13.0)
[2022-10-08 22:53] LABS: ACTIVATED PTT 30.2 SECONDS (25.2-36.5)
[2022-10-08 23:05] LABS: POTASSIUM 3.6 mmol/L (3.5-5.1)
[2022-10-08 23:07] LABS: ALBUMIN 4.1 g/dl (3.4-5.0); BLOOD UREA NITROGEN 16.6 mg/dL (7-18); CALCIUM 9.6 mg/dL (8.5-10.1)
[2022-10-08 23:10] LABS: URINE APPEARANCE TURBID; URINE COLOR RED
[2022-10-08 23:11] LABS: CREATININE 0.7 mg/dL (0.55-1.3)
[2022-10-08 23:12] LABS: BILIRUBIN,TOTAL 0.2 mg/dL (0.2-1); TOT PROT 6.7 g/dl (6.4-8.2)
[2022-10-08 23:15] LABS: URINE BILIRUBIN NEGATIVE (NEGATIVE); URINE GLUCOSE (UA) NEGATIVE (NEGATIVE); URINE LEUK ESTERASE TRACE (NEGATIVE); URINE UROBILINOGEN 0.2 mg/dL (0.2-1.0)
[2022-10-08 23:25] LABS: URINE RBC >200 /hpf (0-4)
[2022-10-08 23:26] LABS: URINE BACTERIA FEW /hpf (NEGATIVE)
[2022-10-08] MEDS ORDERED: LIDOCAINE HCL 2% JELLY 10 ML CARTRIDGE ONE (23:37)
[2022-10-09 00:13] LABS: BASO % 0.3 % (0-2.0); EOS % 0.6 % (0-4.5); HEMATOCRIT 34.6 % (35.4-49); HEMOGLOBIN 11.7 GM/dL (11.7-16.9); LYMPH % 8.3 % (8-40); MCH 28.8 pg (25.7-33.7); MCHC 33.9 g/dl (32.0-35.9); MEAN PLT VOLUME 9.6 fl (7.5-11.1); MONO % 5.4 % (3.8-10.2); NEUT % 85.4 % (42.8-82.8); PLATELET COUNT 180 10^3/uL (134-434); RBC 4.07 M/mm3 (4.00-5.60); RDW 13.6 % (11.9-15.9); WHITE BLOOD COUNT 10.7 K/mm3 (4.0-10.0)
[2022-10-09] MEDS ORDERED: ACETAMINOPHEN 1000 MG/100 ML BAG IVPB PRN (01:01)
[2022-10-09] MEDS: SODIUM CHLORIDE 1,000 ML IV SCH ×3 (01:40→14:21)
[2022-10-09 04:02] VITALS: BMI 19.3
[2022-10-09] MEDS: CEPHALEXIN MONOHYDRATE 500 MG CAPSULE (UD) PO SCH ×3 (07:07→21:30)
[2022-10-09] MEDS: amLODIPine BESYLATE 10 MG TABLET (FP) PO SCH (09:51)
[2022-10-09] MEDS: CITALOPRAM HYDROBROMIDE 20 MG TABLET PO SCH (09:51)
[2022-10-09 14:16] VITALS: RESP 18
[2022-10-09] MEDS ORDERED: ATORVASTATIN CA 40 MG TABLET (FP) PO SCH (22:00)
[2022-10-10] MEDS ORDERED: ACETAMINOPHEN 325 MG TABLET (FP) PO PRN (00:54)
[2022-10-10] MEDS: SODIUM CHLORIDE 1,000 ML IV SCH (01:35)
[2022-10-10] MEDS: CEPHALEXIN MONOHYDRATE 500 MG CAPSULE (UD) PO SCH ×2 (06:00→13:20)
[2022-10-10 08:39] VITALS: BP 126/66; PULSE 78; TEMP 98.9
[2022-10-10] MEDS ORDERED: TAMSULOSIN HCL 0.4 MG CAP PO ONE (09:22)
[2022-10-10] MEDS: CITALOPRAM HYDROBROMIDE 20 MG TABLET PO SCH ×2 (09:27→09:28)
[2022-10-10] MEDS: amLODIPine BESYLATE 10 MG TABLET (FP) PO SCH (09:27)
[2022-10-10 09:57] LABS: BASO % 0.5 % (0-2.0); EOS % 0.8 % (0-4.5); HEMATOCRIT 44.5 % (35.4-49); HEMOGLOBIN 14.9 GM/dL (11.7-16.9); LYMPH % 11.5 % (8-40); MCH 28.8 pg (25.7-33.7); MCHC 33.6 g/dl (32.0-35.9); MEAN CELL VOLUME 85.8 fl (80-96); MEAN PLT VOLUME 9.5 fl (7.5-11.1); MONO % 4.8 % (3.8-10.2); NEUT % 82.4 % (42.8-82.8); PLATELET COUNT 232 10^3/uL (134-434); RBC 5.18 M/mm3 (4.00-5.60); RDW 13.8 % (11.9-15.9); WHITE BLOOD COUNT 9.4 K/mm3 (4.0-10.0)
[2022-10-10 10:17] LABS: BLOOD UREA NITROGEN 10.1 mg/dL (7-18); CALCIUM 10.4 mg/dL (8.5-10.1)
[2022-10-10 10:18] LABS: MAGNESIUM 1.8 mg/dL (1.8-2.4)
[2022-10-10 10:21] LABS: CREATININE 0.7 mg/dL (0.55-1.3); PHOSPHOROUS 2.4 mg/dL (2.5-4.9)
== END 2022-10-10 13:39 | disposition home or self-care (01) | DRG 696 ==
LOC: JER 20:59 → JERBED 10-09 00:05 → J6S 10-09 03:00
PROVIDERS: ADMIT Internal Medicine; ATTEND Family Medicine
DX: R31.9 Hematuria, unspecified (principal); I10 Essential (primary) hypertension; G43.909 Migraine, unspecified, not intractable, without status migrainosus; N40.0 Benign prostatic hyperplasia without lower urinary tract symptoms; F32.A Depression, unspecified; K62.3 Rectal prolapse; E78.5 Hyperlipidemia, unspecified; R33.9 Retention of urine, unspecified; D64.9 Anemia, unspecified
CPT/HCPCS: 0241U-QW; 36415; 76775-TC; 76856-TC; 80048; 80053; 81003; 83735; 84100; 84443; 85025; 85610; 85730; 86850; 86870; 86900; 86901; 86902; 93005; 93010; 99285-25

== ENCOUNTER 2022-12-09 03:47 | Emergency (ER) | payer OTHER ==
[2022-12-09] MEDS ORDERED: ACETAMINOPHEN 325 MG TABLET (FP) PO ONE (04:00)
[2022-12-09] MEDS ORDERED: LIDOCAINE 5% TOPICAL PATCH TP ONE (04:00)
[2022-12-09 04:05] VITALS: BP 125/78; PULSE 100; RESP 18; TEMP 98.1; BMI 18.6
[2022-12-09] MEDS ORDERED: ACETAMINOPHEN 325 MG TABLET (FP) ONE (04:11)
[2022-12-09] MEDS ORDERED: LIDOCAINE 5% TOPICAL PATCH ONE (04:11)
[2022-12-09] MEDS ORDERED: diazePAM 5 MG TABLET PO ONE (04:57)
[2022-12-09] MEDS ORDERED: LIDOCAINE PATCH REMOVAL MC SCH (22:00)
== END 2022-12-09 05:30 | disposition left against medical advice (07) ==
LOC: JER 03:47
DX: M54.41 Lumbago with sciatica, right side (principal)
CPT/HCPCS: 99283-25

== ENCOUNTER 2022-12-20 08:56 | Emergency (ER) | payer OTHER ==
[2022-12-20 09:02] VITALS: BMI 18.6
[2022-12-20] MEDS ORDERED: SODIUM CHLORIDE 1,524 ML IV ONE (09:39)
[2022-12-20] MEDS ORDERED: ACETAMINOPHEN 325 MG TABLET (FP) PO ONE (09:40)
[2022-12-20] MEDS ORDERED: ACETAMINOPHEN 325 MG TABLET (FP) ONE (10:17)
[2022-12-20 10:35] LABS: VENOUS BASE EXCESS -0.1 mmol/L (-2-2); VENOUS O2 SATURATION 80.6 % (70-80); VENOUS PCO2 40.4 mmHg (38-52); VENOUS PH 7.402 (7.310-7.410)
[2022-12-20 10:38] LABS: HEMATOCRIT 40.3 % (35.4-49); HEMOGLOBIN 13.3 GM/dL (11.7-16.9); MCH 27.7 pg (25.7-33.7); MCHC 32.9 g/dl (32.0-35.9); MEAN CELL VOLUME 84.1 fl (80-96); MEAN PLT VOLUME 8.9 fl (7.5-11.1); PLATELET COUNT 231 10^3/uL (134-434); RBC 4.79 M/mm3 (4.00-5.60); RDW 13.1 % (11.9-15.9); WHITE BLOOD COUNT 18.4 K/mm3 (4.0-10.0)
[2022-12-20 10:45] LABS: INR 1.05 (0.83-1.09); PROTHROMBIN TIME (PATIENT) 12.2 SEC (9.7-13.0)
[2022-12-20 10:47] LABS: ACTIVATED PTT 33.2 SECONDS (25.2-36.5)
[2022-12-20 10:57] LABS: CHLORIDE 105 mmol/L (98-107)
[2022-12-20 10:59] LABS: ALBUMIN 3.7 g/dl (3.4-5.0); CALCIUM 9.8 mg/dL (8.5-10.1); CO2 26 mmol/L (21-32); GLUCOSE,RANDOM 95 mg/dL (74-106)
[2022-12-20 11:02] LABS: SGPT/ALT 19 U/L (13-61)
[2022-12-20 11:03] LABS: CREATININE 0.8 mg/dL (0.55-1.3); SGOT/AST 13 U/L (15-37)
[2022-12-20 11:04] LABS: BILIRUBIN,TOTAL 0.6 mg/dL (0.2-1); TOT PROT 6.8 g/dl (6.4-8.2)
[2022-12-20 11:05] LABS: ALK PHOS 91 U/L (45-117)
[2022-12-20 11:07] LABS: ANION GAP 8 MMOL/L (8-16); SODIUM 140 mmol/L (136-145)
[2022-12-20 11:23] LABS: ANISOCYTOSIS 0; HELMET CELLS 0; HOWELL-JOLLY BODIES 0; MACROCYTOSIS 0; OVALOCYTE 0; ROULEAU 0; SICKELED CELLS 0; TARGET CELLS 0; TEAR DROP CELLS 0; TOXIC GRANULATION 0
[2022-12-20 12:18] LABS: EPI CELLS 0 /uL (0-25.1); HYALINE CASTS 1 /uL (0-3.1); URINE APPEARANCE CLOUDY; URINE BACTERIA 107 /uL (0-1359); URINE BILIRUBIN NEGATIVE (NEGATIVE); URINE COLOR RED; URINE GLUCOSE (UA) NEGATIVE (NEGATIVE); URINE KETONE TRACE (NEGATIVE); URINE LEUK ESTERASE 3+ (NEGATIVE); URINE NITRITE NEGATIVE (NEGATIVE); URINE PROTEIN 2+ (NEGATIVE); URINE RBC 9517 /uL (0-23.9); URINE UROBILINOGEN 0.2 mg/dL (0.2-1.0); URINE WBC 2453 /uL (0-25.8)
[2022-12-20 12:19] VITALS: BP 109/66; PULSE 98; RESP 16; TEMP 98.6
[2022-12-20] MEDS ORDERED: PIPERACILLIN/TAZOB 3.375 GM 3.375 GM in DEXTROSE 5%-WATER - 50 ML IVPB ONE (12:45)
[2022-12-20] MEDS ORDERED: PIPERACILLIN/TAZOB 3.375 GM 3.375 GM/50 ML BAG IVPB ONE (12:54)
== END 2022-12-20 13:51 | disposition left against medical advice (07) ==
LOC: JER 08:56
PROC: 3E03329 Introduction of Other Anti-infective into Peripheral Vein, Percutaneous Approach (ICD-10-PCS; principal; 2022-12-20)
PROC: 3E0337Z Introduction of Electrolytic and Water Balance Substance into Peripheral Vein, Percutaneous Approach (ICD-10-PCS; 2022-12-20)
DX: R50.9 Fever, unspecified (principal); N39.0 Urinary tract infection, site not specified; R31.0 Gross hematuria; Z20.822 Contact with and (suspected) exposure to COVID-19
CPT/HCPCS: 0241U-QW; 36415; 71046-TC-FY; 80053; 81003; 82550; 82553; 82803; 83605; 84484; 85025; 85610; 85730; 86850; 86870; 86900; 86901; 86902; 87040; 87086; 87186; 93005; 93010; 99285-25

== ENCOUNTER 2022-12-21 15:29 | Inpatient (IN) | payer OTHER ==
[2022-12-21] MEDS ORDERED: ACETAMINOPHEN 1000 MG/100 ML BAG IVPB ONE (16:10)
[2022-12-21] MEDS ORDERED: PIPERACILLIN/TAZOB 3.375 GM 3.375 GM in DEXTROSE 5%-WATER - 50 ML IVPB ONE (16:10)
[2022-12-21] MEDS ORDERED: ONDANSETRON 4 MG/2 ML VIAL IVPUSH ONE (16:10)
[2022-12-21] MEDS ORDERED: PIPERACILLIN/TAZOB 3.375 GM 3.375 GM/50 ML BAG IVPB ONE (16:54)
[2022-12-21] MEDS ORDERED: ACETAMINOPHEN INJECTION 100 ML IVPB ONE (16:54)
[2022-12-21] MEDS ORDERED: ONDANSETRON 4 MG/2 ML VIAL ONE (16:54)
[2022-12-21 18:09] LABS: BASO % 0.4 % (0-2.0); EOS % 0.1 % (0-4.5); HEMATOCRIT 39.1 % (35.4-49); HEMOGLOBIN 12.6 GM/dL (11.7-16.9); LYMPH % 1.9 % (8-40); MCH 27.3 pg (25.7-33.7); MCHC 32.2 g/dl (32.0-35.9); MEAN CELL VOLUME 84.8 fl (80-96); MEAN PLT VOLUME 9.1 fl (7.5-11.1); MONO % 3.2 % (3.8-10.2); NEUT % 94.4 % (42.8-82.8); PLATELET COUNT 229 10^3/uL (134-434); RBC 4.61 M/mm3 (4.00-5.60); RDW 13.3 % (11.9-15.9); WHITE BLOOD COUNT 19.1 K/mm3 (4.0-10.0)
[2022-12-21 18:18] LABS: EPI CELLS 11 /uL (0-25.1); HYALINE CASTS 0 /uL (0-3.1); PH,URINE 5.5 (5.0-8.0); URINE APPEARANCE CLEAR; URINE BACTERIA 34 /uL (0-1359); URINE BILIRUBIN NEGATIVE (NEGATIVE); URINE COLOR YELLOW; URINE GLUCOSE (UA) NEGATIVE (NEGATIVE); URINE KETONE 2+ (NEGATIVE); URINE LEUK ESTERASE 2+ (NEGATIVE); URINE NITRITE NEGATIVE (NEGATIVE); URINE PROTEIN 1+ (NEGATIVE); URINE RBC 705 /uL (0-23.9); URINE UROBILINOGEN 0.2 mg/dL (0.2-1.0); URINE WBC 275 /uL (0-25.8)
[2022-12-21 18:38] LABS: POTASSIUM 4.1 mmol/L (3.5-5.1)
[2022-12-21 18:42] LABS: CALCIUM 9.5 mg/dL (8.5-10.1)
[2022-12-21 18:43] LABS: ALBUMIN 3.6 g/dl (3.4-5.0); BLOOD UREA NITROGEN 12.5 mg/dL (7-18)
[2022-12-21 18:45] LABS: ANISOCYTOSIS 1+; MACROCYTOSIS 0; OVALOCYTE 1+; TEAR DROP CELLS 1+
[2022-12-21] MEDS ORDERED: LACTATED RINGERS SOLUTION 1000 ML INFUS.BAG IV ONE (18:45)
[2022-12-21 18:46] LABS: CREATININE 0.7 mg/dL (0.55-1.3)
[2022-12-21 18:47] LABS: BILIRUBIN,TOTAL 0.3 mg/dL (0.2-1); TOT PROT 6.7 g/dl (6.4-8.2)
[2022-12-22] MEDS ORDERED: DOCUSATE SODIUM 100 MG CAPSULE (FP) PO PRN (02:27)
[2022-12-22] MEDS ORDERED: ACETAMINOPHEN 1000 MG/100 ML BAG IVPB PRN (02:30)
[2022-12-22 03:02] VITALS: BMI 18.1
[2022-12-22] MEDS ORDERED: PIPERACILLIN/TAZOB 3.375 GM 3.375 GM in DEXTROSE 5%-WATER - 50 ML IVPB ONE (03:10)
[2022-12-22] MEDS ORDERED: PIPERACILLIN/TAZOB 3.375 GM 3.375 GM in DEXTROSE 5%-WATER - 50 ML IVPB SCH (09:00)
[2022-12-22] MEDS: TAMSULOSIN HCL 0.4 MG CAP PO SCH (09:26)
[2022-12-22] MEDS: FINASTERIDE 5 MG TABLET (FP) PO SCH (09:26)
[2022-12-22 10:55] LABS: BASO % 0.3 % (0-2.0); EOS % 0.1 % (0-4.5); HEMATOCRIT 38.7 % (35.4-49); HEMOGLOBIN 12.3 GM/dL (11.7-16.9); LYMPH % 5.3 % (8-40); MCH 27.5 pg (25.7-33.7); MCHC 31.8 g/dl (32.0-35.9); MEAN CELL VOLUME 86.5 fl (80-96); MEAN PLT VOLUME 9.2 fl (7.5-11.1); MONO % 5.9 % (3.8-10.2); NEUT % 88.4 % (42.8-82.8); PLATELET COUNT 231 10^3/uL (134-434); RBC 4.48 M/mm3 (4.00-5.60); RDW 13.4 % (11.9-15.9); WHITE BLOOD COUNT 15.9 K/mm3 (4.0-10.0)
[2022-12-22] MEDS: PIPERACILLIN/TAZOB 3.375 GM 3.375 GM in DEXTROSE 5%-WATER - 50 ML IVPB SCH (17:48)
[2022-12-23] MEDS: PIPERACILLIN/TAZOB 3.375 GM 3.375 GM in DEXTROSE 5%-WATER - 50 ML IVPB SCH ×2 (01:29→09:42)
[2022-12-23] MEDS: TAMSULOSIN HCL 0.4 MG CAP PO SCH (08:18)
[2022-12-23 09:02] VITALS: BP 129/83; PULSE 81; RESP 19; TEMP 98.8
[2022-12-23 09:28] LABS: HEMATOCRIT 40.1 % (35.4-49); HEMOGLOBIN 12.9 GM/dL (11.7-16.9); MCH 27.9 pg (25.7-33.7); MCHC 32.3 g/dl (32.0-35.9); MEAN CELL VOLUME 86.4 fl (80-96); PLATELET COUNT 285 10^3/uL (134-434); RBC 4.64 M/mm3 (4.00-5.60); RDW 13.1 % (11.9-15.9)
[2022-12-23 09:35] LABS: INR 1.08 (0.83-1.09); PROTHROMBIN TIME (PATIENT) 12.5 SEC (9.7-13.0)
[2022-12-23 09:37] LABS: ACTIVATED PTT 32.8 SECONDS (25.2-36.5)
[2022-12-23] MEDS: FINASTERIDE 5 MG TABLET (FP) PO SCH (09:42)
[2022-12-23 09:46] LABS: POTASSIUM 4.7 mmol/L (3.5-5.1)
[2022-12-23 09:48] LABS: CALCIUM 9.9 mg/dL (8.5-10.1)
[2022-12-23 09:49] LABS: BLOOD UREA NITROGEN 13.1 mg/dL (7-18)
[2022-12-23 09:51] LABS: CREATININE 0.7 mg/dL (0.55-1.3)
== END 2022-12-23 11:01 | disposition home or self-care (01) | DRG 919 ==
LOC: JER 15:29 → JERBED 19:35 → J5S 12-22 02:50
PROVIDERS: ADMIT Internal Medicine; ATTEND Family Medicine
DX: T81.9XXA Unspecified complication of procedure, initial encounter (principal); A41.9 Sepsis, unspecified organism; N39.0 Urinary tract infection, site not specified; Z68.1 Body mass index [BMI] 19.9 or less, adult; I10 Essential (primary) hypertension; R31.9 Hematuria, unspecified; G43.909 Migraine, unspecified, not intractable, without status migrainosus; D64.9 Anemia, unspecified; F32.A Depression, unspecified; R33.9 Retention of urine, unspecified; N40.1 Benign prostatic hyperplasia with lower urinary tract symptoms; Y83.9 Surgical procedure, unspecified as the cause of abnormal reaction of the patient, or of later complication, without mention of misadventure at the time of the procedure
CPT/HCPCS: 36415; 80048; 80053; 81003; 83735; 85025; 85027; 85610; 85730; 87040; 87086; 87186; 93005; 93010; 99285-25